=== PATIENT | male | born 1995 | race Two or more races ===

== ENCOUNTER 2024-11-26 16:12 | Inpatient (IN) | payer MEDICARE, MEDICAID ==
[~2024-11-26] VITALS: Ht 167.6 cm; Wt 81.5 kg
[2024-11-26] MEDS: SODIUM CHLORIDE 0.9% 1,000 ML IV ONE (00:30)
--- NOTE | 2024-11-26 16:26 | ED.PDOC ---
GI ASSESSMENT HPI Comments 29 year old male presents to the ED with a chief compliant of abdominal pain onset today (11/26/24) about 45 minutes prior to ED arrival. Per EMS, patient's family left to religious, returned and noticed patient was experiencing several abdominal pain, RLQ. Patient states he had a sandwich and chips for lunch prior to pain. He was given Fentanyl 50 mcg in route to ED by EMS. PMHx cerebral palsy - wheelchair bound. Denies chest pain, nausea, vomiting, diarrhea, constipation, dysuria, hematuria, headache, dizziness, fever, chills. No other symptoms or modifying factors present at this time. Time Seen by MD: 16:20 Reviewed Notes: Medications, Allergies Allergies: Coded Allergies: NO KNOWN ALLERGIES (Unverified , 11/26/24) Information Source: Patient, Emergency Med Personnel Mode of Arrival: EMS Timing: Minutes Duration: Since onset Prehospital treatment: Pain Meds (Fentanyl 50 mcg ) Quality: Sharp Vomitus: None Severity: Moderate Recent: None Recent Hx of: None Pain Location: RLQ Associated sign and symptoms: Abdominal Pain Past Medical History Past Medical History (Other): cerebral palsy Surgical History: Denies all surgeries Family History Family History: Reviewed,noncontributory to illness, No family hx of Cancer, No family hx of DM, No family hx of Heart estevan, No family hx of HTN, No family hx ofKidney estevan, No family hx of Liver estevan, No family hx of Lung estevan, No family hx of Stroke Social History Smoker: Non-Smoker Alcohol: Denies ETOH Use Drugs: Denies Drug Use Lives In: Home Constitutional: denies: chills, diaphoresis, fatigue, fever, malaise, sweats, weakness, others EENTM: denies: blurred vision, double vision, ear bleeding, ear discharge, ear drainage, ear pain, ear ringing, eye pain, eye redness, hearing loss, mouth pain, mouth swelling, nasal discharge, nose bleeding, nose congestion, nose pain, photophobia, tearing, throat pain, throat swelling, voice changes, others Respiratory: denies: cough, hemoptysis, orthopnea, SOB at rest, shortness of breath, SOB with excertion, stridor, wheezing, others Cardiovascular: denies: chest pain, dizzy spells, diaphoresis, Dyspnea on exertion, edema, irregular heart beat, left arm pain, lightheadedness, palpitations, PND, syncope, others Gastrointestinal: reports: abdominal pain (RLQ); denies: abdomen distended, blood streaked bowels, constipated, diarrhea, dysphagia, difficulty swallowing, hematemesis, melena, nausea, poor appetite, poor fluid intake, rectal bleeding, rectal pain, vomiting, others Genitourinary: denies: burning, dysuria, flank pain, frequency, hematuria, incontinence, penile discharge, penile sore, pain, testicle pain, testicle swelling, urgency, others Neurological: denies: dizziness, fainting, headache, left sided numbness, left sided weakness, numbness, paresthesia, pre-existing deficit, right sided numbness, right sided weakness, seizure, speech problems, tingling, tremors, weakness, others Musculoskeletal: denies: back pain, gout, joint pain, joint swelling, muscle pain, muscle stiffness, neck pain, others Integumetry: denies: bruises, change in color, change in hair/nails, dryness, laceration, lesions, lumps, rash, wounds, others Allergic/Immunocompromised: denies: Difficulty Healing, Frequent Infections, Hives, Itching, others Hematologic/Lymphatic: denies: anemia, blood clots, easy bleeding, easy bruising, swollen glands, others Endocrine: denies: excessive hunger, excessive sweating, excessive thirst, excessive urination, flushing, intolerance to cold, intolerance to heat, unexplained weight gain, unexplained weight loss, others Psychiatric: denies: anxiety, bipolar disorder, depression, hopeless, panic disorder, schizophrenia, sleepless, suicidal, others All Other Systems: Reviewed and Negative Physical Exam General Appearance: Normal HEENT: Normal ENT Inspection, Pharynx Normal, TMs Normal Neck: Full Range of Motion, Non-Tender, Normal, Normal Inspection Respiratory: Chest Non-Tender, Lungs Clear, No Accessory Muscle Use, No Respir atory Distress, Normal Breath Sounds Cardiovascular: No Edema, No JVD, No Murmur, No Gallop, Normal Peripheral Pulses, Regular Rate/Rhythm Breast Exam: Deferred Gastrointestinal: No Organomegaly, Normal Bowel Sounds, RLQ (tenderness), Tenderness (RLQ) Genitalia: Deferred Pelvic: Deferred Rectal: Deferred Extremities: No calf tenderness, Normal capillary refill, Normal inspection, Normal range of motion, Non-tender, No pedal edema Musculoskeletal : Apperance: Normal Neurologic: Alert, Normal Affect, Normal Mood Cerebellar Function: Normal Reflexes: Normal Skin: Dry, Normal Color, Warm Lymphatic: No Adenopathy Was a procedure done? Was a procedure done?: No GI differential Dx Differential Diagnosis: Constipation, Diverticular disease, Esophagitis, Gastritis/PUD, Gastroenteritis X-Ray, Labs, Meds, VS Vital Signs Date Time Temp Pulse Resp B/P (MAP) Pulse Ox O2 Delivery O2 Flow Rate FiO2 11/26/24 16:25 98.3 123 24 121/96 (104) 96 98.3 Lab Test 11/26/24 16:45 Range/Units White Blood Count 24.1 H 4.4-10.8 10^3/uL Red Blood Count 5.21 4.5-5.90 10^6/uL Hemoglobin 15.6 13.5-17.5 g/dL Hematocrit 46.7 41.0-53.0 % Mean Corpuscular Volume 89.7 80.0-100.0 fL Mean Corpuscular Hemoglobin 30.0 28.0-32.0 pg Mean Corpuscular Hemoglobin Concent 33.5 32.0-36.0 g/dL Red Cell Distribution Width 13.2 11.8-14.3 % Platelet Count 433 140-450 10^3/uL Mean Platelet Volume 7.9 6.9-10.8 fL Neutrophils (%) (Auto) 82.0 H 37.0-80.0 % Lymphocytes (%) (Auto) 10.4 10.0-50.0 % Monocytes (%) (Auto) 5.5 0.0-12.0 % Eosinophils (%) (Auto) 1.9 0.0-7.0 % Basophils (%) (Auto) 0.2 0.0-2.0 % Neutrophils # (Auto) 19.8 H 1.6-8.6 10 ^3/uL Lymphocytes # (Auto) 2.5 0.4-5.4 10 ^3/uL Monocytes # (Auto) 1.3 0-1.3 10 ^3/uL Eosinophils # (Auto) 0.4 0-0.8 10 ^3/uL Basophils # (Auto) 0.1 0-0.2 10 ^3/uL Nucleated Red Blood Cells 0.1 % Sodium Level 143 136-145 mmol/L Potassium Level 3.0 L 3.5-5.1 mmol/L Chloride Level 113 H 98-107 mmol/L Carbon Dioxide Level 19 L 20-31 mmol/L Anion Gap 11 5-15 Blood Urea Nitrogen Pending Creatinine Pending Glomerular Filtration Rate Calc Pending BUN/Creatinine Ratio Pending Serum Glucose Pending Calcium Level Pending Lipase Pending Time of 1ST Reevaluation: 16:50 Reevaluation 1ST: Unchanged Patient Education/Counseling: Diagnosis, Treatment, Prognosis Family Education/Counseling: No Family Present SEPSIS Sepsis Screen Physician Orders Ct Ab Pel With Iv Con Only (11/26/24 16:23) Basic Metabolic Panel (11/26/24 16:23) Urinalysis (11/26/24 16:23) Lipase (11/26/24 16:23) Vital Signs Date Time Temp Pulse Resp B/P (MAP) Pulse Ox O2 Delivery O2 Flow Rate FiO2 11/26/24 16:25 98.3 123 24 121/96 (104) 96 98.3 Laboratory Tests Test 11/26/24 16:45 White Blood Count 24.1 10^3/uL (4.4-10.8) H Critical Care Note Critical Care Time?: No Stability Stability form required: No I personally scribed for IVETTE ZUÑIGA MD ([email or web address]) on 11/26/24 at 16:26. Electronically submitted by Gail Rivera ([email or web address]). I personally scribed for IVETTE ZUÑIGA MD ([email or web address]) on 11/26/24 at 17:33. Electronically submitted by Gail Rivera [email or web address]). IVETTE ZUÑIGA MD Nov 26, 2024 16:26
[2024-11-26 17:06] LABS: Hematocrit 46.7 % (41.0-53.0); Hemoglobin 15.6 g/dL (13.5-17.5); Mean Corpuscular Hemoglobin 30.0 pg (28.0-32.0); Mean Corpuscular Volume 89.7 fL (80.0-100.0); Nucleated Red Blood Cells % 0.1 %
[2024-11-26 17:15] LABS: Anion Gap 11 (5-15); Sodium 143 mmol/L (136-145)
[2024-11-26 17:16] LABS: Carbon Dioxide 19 mmol/L (20-31); Chloride 113 mmol/L (98-107); Potassium 3.0 mmol/L (3.5-5.1)
[2024-11-26 17:21] LABS: BUN/Creatinine Ratio 13.1 (10.0-20.0); Lipase 27 U/L (12-53)
--- NOTE | 2024-11-26 17:35 | ED.PDOC ---
GI ASSESSMENT HPI Comments 29 year old male presents to the ED with a chief compliant of abdominal pain onset today (11/26/24) about 45 minutes prior to ED arrival. Per EMS, patient's family left to anabaptism, returned and noticed patient was experiencing several abdominal pain, RLQ. Patient states he had a sandwich and chips for lunch prior to pain. He was given Fentanyl 50 mcg in route to ED by EMS. PMHx cerebral palsy - wheelchair bound. Denies chest pain, nausea, vomiting, diarrhea, constipation, dysuria, hematuria, headache, dizziness, fever, chills. No other symptoms or modifying factors present at this time. Chief Complaint: Abdominal Pain Time Seen by MD: 16:20 Reviewed Notes: Nurses Notes, Medications, Allergies Allergies: Coded Allergies: NO KNOWN ALLERGIES (Unverified , 11/26/24) Information Source: Patient, Emergency Med Personnel Mode of Arrival: EMS Timing: Minutes Duration: Since onset Prehospital treatment: Pain Meds (50 mcg Fentanyl) Quality: Sharp Vomitus: None Severity: Moderate Recent: None Recent Hx of: None Pain Location: RLQ Modifying Factors: Nothing Associated sign and symptoms: Abdominal Pain Past Medical History Past Medical History (Other): cerebral palsy Surgical History: Denies all surgeries Family History Family History: Reviewed,noncontributory to illness, No family hx of Cancer, No family hx of DM, No family hx of Heart estevan, No family hx of HTN, No family hx ofKidney estevan, No family hx of Liver estevan, No family hx of Lung estevan, No family hx of Stroke Social History Smoker: Non-Smoker Alcohol: Denies ETOH Use Drugs: Denies Drug Use Lives In: Home Constitutional: denies: chills, diaphoresis, fatigue, fever, malaise, sweats, weakness, others EENTM: denies: blurred vision, double vision, ear bleeding, ear discharge, ear drainage, ear pain, ear ringing, eye pain, eye redness, hearing loss, mouth pain, mouth swelling, nasal discharge, nose bleeding, nose congestion, nose pain, photophobia, tearing, throat pain, throat swelling, voice changes, others Respiratory: denies: cough, hemoptysis, orthopnea, SOB at rest, shortness of breath, SOB with excertion, stridor, wheezing, others Cardiovascular: denies: chest pain, dizzy spells, diaphoresis, Dyspnea on exertion, edema, irregular heart beat, left arm pain, lightheadedness, palpitations, PND, syncope, others Gastrointestinal: reports: abdominal pain (RLQ); denies: abdomen distended, blood streaked bowels, constipated, diarrhea, dysphagia, difficulty swallowing, hematemesis, melena, nausea, poor appetite, poor fluid intake, rectal bleeding, rectal pain, vomiting, others Genitourinary: denies: burning, dysuria, flank pain, frequency, hematuria, incontinence, penile discharge, penile sore, pain, testicle pain, testicle swelling, urgency, others Neurological: denies: dizziness, fainting, headache, left sided numbness, left sided weakness, numbness, paresthesia, pre-existing deficit, right sided numbness, right sided weakness, seizure, speech problems, tingling, tremors, weakness, others Musculoskeletal: denies: back pain, gout, joint pain, joint swelling, muscle pain, muscle stiffness, neck pain, others Integumetry: denies: bruises, change in color, change in hair/nails, dryness, laceration, lesions, lumps, rash, wounds, others Allergic/Immunocompromised: denies: Difficulty Healing, Frequent Infections, Hives, Itching, others Hematologic/Lymphatic: denies: anemia, blood clots, easy bleeding, easy bruising, swollen glands, others Endocrine: denies: excessive hunger, excessive sweating, excessive thirst, excessive urination, flushing, intolerance to cold, intolerance to heat, unexpl ained weight gain, unexplained weight loss, others Psychiatric: denies: anxiety, bipolar disorder, depression, hopeless, panic disorder, schizophrenia, sleepless, suicidal, others All Other Systems: Reviewed and Negative Physical Exam General Appearance: Normal HEENT: Normal ENT Inspection, Pharynx Normal, TMs Normal Neck: Full Range of Motion, Non-Tender, Normal, Normal Inspection Respiratory: Chest Non-Tender, Lungs Clear, No Accessory Muscle Use, No Respiratory Distress, Normal Breath Sounds Cardiovascular: No Edema, No JVD, No Murmur, No Gallop, Normal Peripheral Pulses, Regular Rate/Rhythm Breast Exam: Deferred Gastrointestinal: No Organomegaly, RLQ (tenderness), Tenderness (RLQ) Genitalia: Deferred Pelvic: Deferred Rectal: Deferred Extremities: No calf tenderness, Normal capillary refill, Normal inspection, Normal range of motion, Non-tender, No pedal edema Musculoskeletal : Apperance: Normal Neurologic: Alert, Normal Affect Cerebellar Function: Normal Reflexes: Normal Skin: Dry, Normal Color, Warm Lymphatic: No Adenopathy Was a procedure done? Was a procedure done?: No GI differential Dx Differential Diagnosis: Appendicitis, Bowel Obstruction, Cholangitis, Cholecystitis, Gastritis/PUD, Gastroenteritis X-Ray, Labs, Meds, VS Vital Signs Date Time Temp Pulse Resp B/P (MAP) Pulse Ox O2 Delivery O2 Flow Rate FiO2 11/26/24 21:43 97.6 113 16 113/69 (84) 96 97.6 11/26/24 16:25 98.3 123 24 121/96 (104) 96 98.3 Lab Test 11/26/24 20:50 11/26/24 16:45 Range/Units Sodium Level 138 # 143 136-145 mmol/L Potassium Level 4.7 3.0 L 3.5-5.1 mmol/L Chloride Level 104 113 H 98-107 mmol/L Carbon Dioxide Level 24 19 L 20-31 mmol/L Anion Gap 10 11 5-15 Blood Urea Nitrogen 9 8 L 9-23 mg/dL Creatinine 0.82 0.61 L 0.700-1.30 mg/dL Glomerular Filtration Rate Calc 120 132 >90 mL/min BUN/Creatinine Ratio 11.0 13.1 10.0-20.0 Serum Glucose 130 H 123 H 74-106 mg/dL Calcium Level 9.7 6.8 L 8.7-10.4 mg/dL Total Bilirubin 0.6 0.2-1.0 mg/dL Aspartate Amino Transferase (AST) 203 H 13-40 U/L Alanine Aminotransferase (ALT) 198 H 7-40 U/L Alkaline Phosphatase 121 H 46-116 U/L Total Protein 7.6 5.7-8.2 g/dL Albumin 4.6 3.2-4.8 g/dL White Blood Count 24.1 H 4.4-10.8 10^3/uL Red Blood Count 5.21 4.5-5.90 10^6/uL Hemoglobin 15.6 13.5-17.5 g/dL Hematocrit 46.7 41.0-53.0 % Mean Corpuscular Volume 89.7 80.0-100.0 fL Mean Corpuscular Hemoglobin 30.0 28.0-32.0 pg Mean Corpuscular Hemoglobin Concent 33.5 32.0-36.0 g/dL Red Cell Distribution Width 13.2 11.8-14.3 % Platelet Count 433 140-450 10^3/uL Mean Platelet Volume 7.9 6.9-10.8 fL Neutrophils (%) (Auto) 82.0 H 37.0-80.0 % Lymphocytes (%) (Auto) 10.4 10.0-50.0 % Monocytes (%) (Auto) 5.5 0.0-12.0 % Eosinophils (%) (Auto) 1.9 0.0-7.0 % Basophils (%) (Auto) 0.2 0.0-2.0 % Neutrophils # (Auto) 19.8 H 1.6-8.6 10 ^3/uL Lymphocytes # (Auto) 2.5 0.4-5.4 10 ^3/uL Monocytes # (Auto) 1.3 0-1.3 10 ^3/uL Eosinophils # (Auto) 0.4 0-0.8 10 ^3/uL Basophils # (Auto) 0.1 0-0.2 10 ^3/uL Nucleated Red Blood Cells 0.1 % Lipase 27 12-53 U/L X-Ray, Labs, Meds, VS Comment Gallbladder ultrasound: IMPRESSION: 1. Cholelithiasis and sludge with gallbladder wall thickening. These findings may be consistent with acute cholecystitis in the appropriate clinical setting. 2. Diffusely coarsened heterogeneous hepatic parenchymal echotexture. Patient will be admitted for cholecystitis Patient is started on ceftriaxone and Flagyl Vital signs monitored clinically stable Time of 1ST Reevaluation: 16:50 Reevaluation 1ST: Unchanged Patient Education/Counseling: Diagnosis, Treatment, Prognosis Family Education/Counseling: Diagnosis, Treatment, Prognosis SEPSIS Sepsis Screen Date sepsis recognized/suspect: Nov 26, 2024 Time Sepsis recognized/suspect: 1624 Recent Procedure: No On Antibiotic Therapy: No Respiratory Rate >20: Yes Heart Rate >90: Yes Temp<36 C (96.8 F) or >38.3 C: No SBP <90 or MAP <65 mmHG: No New Acute Mental Status Change: No Is the patient on CPAP, BIPAP,: No Physician Orders Ct Ab Pel With Iv Con Only (11/26/24 16:23) Urinalysis (11/26/24 16:23) Blood Culture (11/26/24 20:41) Gallbladder (11/26/24 20:41) Ceftriaxone 1gm/50ml D5w (Rocephin) (11/26/24 23:00) Metronidazole 500mg/100ml (Flagyl 500mg/ (11/26/24 23:00) Vital Signs Date Time Temp Pulse Resp B/P (MAP) Pulse Ox O2 Delivery O2 Flow Rate FiO2 11/26/24 21:43 97.6 113 16 113/69 (84) 96 97.6 11/26/24 16:25 98.3 123 24 121/96 (104) 96 98.3 Laboratory Tests Test 11/26/24 16:45 White Blood Count 24.1 10^3/uL (4.4-10.8) H Departure 1 Departure Time of Disposition: 16:50 Impression: Primary Impression: Cholecystitis Disposition: ADMITTED INPATIENT Condition: Stable Critical Care Note Critical Care Time?: No Stability Stability form required: No I personally scribed for AMINA CATES ([email or web address]) on 11/26/24 at 17:35. Electronically submitted by Gail Rivera [email or web address]). AMINA CATES Nov 26, 2024 17:35
[2024-11-26 18:23] LABS: Blood Urea Nitrogen 8 mg/dL (9-23); Calcium 6.8 mg/dL (8.7-10.4); Glucose 123 mg/dL (74-106)
--- NOTE | 2024-11-26 20:24 | DVH ---
Exam: CT CT AB PEL WITH IV CON ONLY History: rlq pain COMPARISON: None Technique: Multidetector spiral CT of the abdomen and pelvis was performed from lung bases to pubic s ymphysis. Intravenous contrast was administered during this examination. Portal venous imaging was obtained. Axial, coronal and sagittal multiplanar reformats were performed by the technologist on a separate workstation. Radiation Dose : 1. Abdomen/Pelvis: CTDIvol 70.8 mGy, DLP 1026 mGy*cm. Findings: Lung Bases: Mild bibasilar dependent atelectasis. Heart is normal in size. No pericardial effusion. Liver: The liver is normal in size. No focal lesions. Normal hepatic vascular enhancement. Gallbladder and Biliary Tree: There is pericholecystic fluid versus mild gallbladder wall thickening along the posterior gallbladder wall. There is focal fat stranding along the inferior margin of the g allbladder. No biliary ductal dilatation. Spleen: Unremarkable Pancreas: The pancreas is normal in appearance without focal lesions or abnormal enhancement. Adrenal Glands: Unremarkable Kidneys: No hydronephrosis. Bladder: Unremarkable Bowel: The stomach is grossly normal in appearance. No evidence of small or large bowel dilation. Mil d wall thickening in the sigmoid colon is likely due to poor distention. The appendix measures up to 6 mm in diameter with and may have mild wall thickening which may be reactive. There is a small amou nt of fluid in the right lower quadrant but no significant periappendiceal fat stranding. Ascites: Small amount of fluid in the right lower quadrant and pelvis. Lymphadenopathy: No mesenteric, retroperitoneal or periportal lymphadenopathy. Abdominal Wall and Mesentery: Unremarkable. Vasculature: The visualized abdominal aorta is normal in size and caliber. Abdominal and pelvic vess els demonstrate normal enhancement. Pelvic Organs: Unremarkable Musculoskeletal: No acute osseous abnormalities. Prior L4-L5 laminectomies. IMPRESSION: Mild fat stranding and fluid in the right abdomen. The most focal area of inflammation is between th e gallbladder and hepatic flexure of the colon. Findings may be secondary to cholecystitis. Colitis i s considered less likely due to a relative lack of colon wall thickening. There is minimal prominence of the appendix (6 mm) although appendicitis is considered less likely given the more focal inflamma tion in the right upper quadrant. Consider right upper quadrant ultrasound. Radiation optimization: All CT scans at this facility use at least one of these dose optimization lila hniques: automated exposure control mA and/or kV adjustment per patient size (includes targeted exam s where dose is matched to clinical indication) or iterative reconstruction.
[2024-11-26 21:20] LABS: Albumin 4.6 g/dL (3.2-4.8); Anion Gap 10 (5-15); BUN/Creatinine Ratio 11.0 (10.0-20.0); Calcium 9.7 mg/dL (8.7-10.4); Carbon Dioxide 24 mmol/L (20-31); Chloride 104 mmol/L (98-107); Potassium 4.7 mmol/L (3.5-5.1); Sodium 138 mmol/L (136-145); Total Protein 7.6 g/dL (5.7-8.2)
[2024-11-26 21:21] LABS: Bilirubin, Total 0.6 mg/dL (0.2-1.0)
[2024-11-26 21:49] LABS: Alanine Aminotransferase 198 U/L (7-40); Alkaline Phosphatase 121 U/L (46-116); Blood Urea Nitrogen 9 mg/dL (9-23); Glucose 130 mg/dL (74-106)
[2024-11-26] MEDS: IOHEXOL 300 MG/ML 100ML BOTTLE IJ ONE (22:12)
--- NOTE | 2024-11-26 22:38 | DVH ---
INDICATION: RUQ pain TECHNIQUE: Multiple real-time sonographic images were obtained of the right upper quadrant. COMPARISON: None FINDINGS: The liver demonstrates diffusely coarsened heterogeneous echotexture without focal mass les ions. The liver measures 13.6 cm. Normal hepatopetal portal flow identified. No evidence of pleural effusion or abdominal ascites. There is no intrahepatic or extrahepatic ductal dilatation. The common duct measures 0.5 cm. Stones and sludge within the gallbladder. The gallbladder wall is thickened, measuring 0.5 cm. Negati ve sonographic Sawyer's sign. The right kidney measures 9.1 cm. The right kidney is normal in contour, size, and shape. The echogen icity is normal. There is no hydronephrosis. The pancreas is not well visualized due to overlying bowel gas. IMPRESSION: 1. Cholelithiasis and sludge with gallbladder wall thickening. These findings may be consistent with acute cholecystitis in the appropriate clinical setting. 2. Diffusely coarsened heterogeneous hepatic parenchymal echotexture.
[2024-11-26] MEDS ORDERED: ONDANSETRON HCL 4 MG/2 ML VIAL IV PRN (23:45)
[2024-11-26] MEDS ORDERED: MORPHINE SULFATE INJ 2 MG/ml SYRG IV PRN (23:45)
[2024-11-27] VITALS (14 sets, daily range): BP systolic 117–142; BP diastolic 67–85; PULSE 77–119; RESP 13–24; TEMP 96.9–98.2; O2SAT 91–96
[2024-11-27] MEDS: cefTRIAXone 1GM/50ML D5W 50 ML IV ONE (00:30)
[2024-11-27 00:39] LABS: INR 1.04 (0.9-1.15); Partial Thromboplastin Time 29.9 SEC (24.5-34.5); Prothrombin Time 11.0 sec (9.3-11.8)
[2024-11-27 02:54] LABS: Urine Protein, UAD TRACE (Negative)
--- NOTE | 2024-11-27 04:00 | DVHHP2 ---
History of Present Illness Reason for Visit: Abdominal pain History of Present Illness 29-year-old male presents for evaluation of abdominal pain. Patient presents with a one day history of right lower quadrant sharp abdominal pain that started after he finished eating a sandwich with chips. No nausea or vomiting. No fever or chills. Past Medical History Cerebral palsy Past Surgical History None Family History Noncontributory Smoke: No ALCOHOL: none Drugs: None Lives: with Family Review of Systems Review of Systems Review of systems are currently negative otherwise addressed in HPI. Allergies: Coded Allergies: NO KNOWN ALLERGIES (Unverified , 11/26/24) Medications Current Medications Medications Dose Ordered Sig/Sebastian Route Start Time Stop Time Status Last Admin Dose Admin Ceftriaxone Sodium 50 ml @ 100 mls/hr DAILY@2100 IV 11/27/24 21:00 Metronidazole 100 ml @ 100 mls/hr Q8HR IV 11/27/24 06:00 Pantoprazole Sodium 40 mg DAILY IV 11/27/24 10:00 Ondansetron HCl 4 mg Q4HP PRN IV 11/26/24 23:45 Morphine Sulfate 2 mg Q4HPRN PRN IV 11/26/24 23:45 Exam Vital Signs Vital Signs Date Time Temp Pulse Resp B/P (MAP) Pulse Ox O2 Delivery O2 Flow Rate FiO2 11/27/24 02:18 97.7 77 19 142/85 (104) 94 97.7 11/27/24 02:11 Room Air* 0 21 Exam Gen: 29-year-old male in mild distress Skin: Warm, dry, normal color and texture, no rash. HEENT: Normocephalic atraumatic, mucous membranes moist and pink. Neck: Cervical and supraclavicular nodes normal without enlargement, trachea is midline, thyroid gland is normal without masses. Pulmonary: Clear to auscultation and percussion bilaterally. Cardiac: Regular rate and rhythm. No murmur Abdomen: Soft, right-sided tenderness nondistended, bowel sounds present all 4 quadrants, no guarding, no rigidity, no organomegaly. Extremities: No cyanosis, clubbing, no edema Neuro: Cranial nerves II through XII grossly intact, normal affect and speech, no focal motor deficits. Labs/Xrays ORDERING PHYSICIAN: AMINA CATES PROCEDURE(s): ABPLIV - CT AB PEL WITH IV CON ONLY REASON: rlq pain ORDER NUMBER(s): [id number], ACCESSION NUMBER(s): [id number] Exam: CT CT AB PEL WITH IV CON ONLY History: rlq pain COMPARISON: None Technique: Multidetector spiral CT of the abdomen and pelvis was performed from lung bases to pubic symphysis. Intravenous contrast was administered during this examination. Portal venous imaging was obtained. Axial, coronal and sagittal multiplanar reformats were performed by the technologist on a separate workstation. Radiation Dose : 1. Abdomen/Pelvis: CTDIvol 70.8 mGy, DLP 1026 mGy*cm. Findings: Lung Bases: Mild bibasilar dependent atelectasis. Heart is normal in size. No pericardial effusion. Liver: The liver is normal in size. No focal lesions. Normal hepatic vascular enhancement. Gallbladder and Biliary Tree: There is pericholecystic fluid versus mild gallbladder wall thickening along the posterior gallbladder wall. There is focal fat stranding along the inferior margin of the gallbladder. No biliary ductal dilatation. Spleen: Unremarkable Pancreas: The pancreas is normal in appearance without focal lesions or abnormal enhancement. Adrenal Glands: Unremarkable Kidneys: No hydronephrosis. Bladder: Unremarkable Bowel: The stomach is grossly normal in appearance. No evidence of small or large bowel dilation. Mild wall thickening in the sigmoid colon is likely due to poor distention. The appendix measures up to 6 mm in diameter with and may have mild wall thickening which may be reactive. There is a small amount of fluid in the right lower quadrant but no significant periappendiceal fat stranding. Ascites: Small amount of fluid in the right lower quadrant and pelvis. Lymphadenopathy: No mesenteric, retroperitoneal or periportal lymphadenopathy. Abdominal Wall and Mesentery: Unremarkable. Vasculature: The visualized abdominal aorta is normal in size and caliber. Abdominal and pelvic vessels demonstrate normal enhancement. Pelvic Organs: Unremarkable Musculoskeletal: No acute osseous abnormalities. Prior L4-L5 laminectomies. IMPRESSION: Mild fat stranding and fluid in the right abdomen. The most focal area of inflammation is between the gallbladder and hepatic flexure of the colon. Findings may be secondary to cholecystitis. Colitis is considered less likely due to a relative lack of colon wall thickening. There is minimal prominence of the appendix (6 mm) although appendicitis is considered less likely given the more focal inflammation in the right upper quadrant. Consider right upper quadrant ultrasound. Radiation optimization: All CT scans at this facility use at least one of these dose optimization techniques: automated exposure control mA and/or kV adjustment per patient size (includes targeted exams where dose is matched to clinical indication) or iterative reconstruction. ATED BY: PETER GERMAN DO ORDERING PHYSICIAN: AMINA CATES PROCEDURE(s): GBUS - GALLBLADDER REASON: RUQ pain ORDER NUMBER(s): [id number], ACCESSION NUMBER(s): [id number] INDICATION: RUQ pain TECHNIQUE: Multiple real-time sonographic images were obtained of the right upper quadrant. COMPARISON: None FINDINGS: The liver demonstrates diffusely coarsened heterogeneous echotexture without focal mass lesions. The liver measures 13.6 cm. Normal hepatopetal portal flow identified. No evidence of pleural effusion or abdominal ascites. There is no intrahepatic or extrahepatic ductal dilatation. The common duct measures 0.5 cm. Stones and sludge within the gallbladder. The gallbladder wall is thickened, measuring 0.5 cm. Negative sonographic Sawyer's sign. The right kidney measures 9.1 cm. The right kidney is normal in contour, size, and shape. The echogenicity is normal. There is no hydronephrosis. The pancreas is not well visualized due to overlying bowel gas. IMPRESSION: 1. Cholelithiasis and sludge with gallbladder wall thickening. These findings may be consistent with acute cholecystitis in the appropriate clinical setting. 2. Diffusely coarsened heterogeneous hepatic parenchymal echotexture. Labs Test 11/27/24 00:16 11/26/24 23:59 11/26/24 20:50 11/26/24 16:45 Range/Units Urine Color Yellow Yellow Urine Clarity Clear Clear Urine pH 5.5 5.0-9.0 Urine Specific [place] > 1.050 H 1.001-1.035 Urine Protein Trace H Negative Urine Ketones 3+ H Negative Urine Blood Negative Negative /uL Urine Nitrite Negative Negative Urine Bilirubin Negative Negative Urine Urobilinogen Normal Negative mg/dL Urine Leukocyte Esterase Negative Negative /uL Urine RBC None seen 0 - 3 /hpf Urine Microscopic WBC 1 0-3 /HPF Urine Squamous Epithelial Cells None seen <5 /hpf Urine Bacteria None seen None Seen /hpf Urine Glucose Normal Normal mg/dL Prothrombin Time 11.0 9.3-11.8 sec Prothrombin Time INR 1.04 0.9-1.15 Activated Partial Thromboplast Time 29.9 24.5-34.5 SEC Sodium Level 138 # 136-145 mmol/L Potassium Level 4.7 3.5-5.1 mmol/L Chloride Level 104 98-107 mmol/L Carbon Dioxide Level 24 20-31 mmol/L Anion Gap 10 5-15 Blood Urea Nitrogen 9 9-23 mg/dL Creatinine 0.82 0.700-1.30 mg/dL Glomerular Filtration Rate Calc 120 >90 mL/min BUN/Creatinine Ratio 11.0 10.0-20.0 Serum Glucose 130 H 74-106 mg/dL Calcium Level 9.7 8.7-10.4 mg/dL Total Bilirubin 0.6 0.2-1.0 mg/dL Aspartate Amino Transferase (AST) 203 H 13-40 U/L Alanine Aminotransferase (ALT) 198 H 7-40 U/L Alkaline Phosphatase 121 H 46-116 U/L Total Protein 7.6 5.7-8.2 g/dL Albumin 4.6 3.2-4.8 g/dL White Blood Count 24.1 H 4.4-10.8 10^3/uL Red Blood Count 5.21 4.5-5.90 10^6/uL Hemoglobin 15.6 13.5-17.5 g/dL Hematocrit 46.7 41.0-53.0 % Mean Corpuscular Volume 89.7 80.0-100.0 fL Mean Corpuscular Hemoglobin 30.0 28.0-32.0 pg Mean Corpuscular Hemoglobin Concent 33.5 32.0-36.0 g/dL Red Cell Distribution Width 13.2 11.8-14.3 % Platelet Count 433 140-450 10^3/uL Mean Platelet Volume 7.9 6.9-10.8 fL Neutrophils (%) (Auto) 82.0 H 37.0-80.0 % Lymphocytes (%) (Auto) 10.4 10.0-50.0 % Monocytes (%) (Auto) 5.5 0.0-12.0 % Eosinophils (%) (Auto) 1.9 0.0-7.0 % Basophils (%) (Auto) 0.2 0.0-2.0 % Neutrophils # (Auto) 19.8 H 1.6-8.6 10 ^3/uL Lymphocytes # (Auto) 2.5 0.4-5.4 10 ^3/uL Monocytes # (Auto) 1.3 0-1.3 10 ^3/uL Eosinophils # (Auto) 0.4 0-0.8 10 ^3/uL Basophils # (Auto) 0.1 0-0.2 10 ^3/uL Nucleated Red Blood Cells 0.1 % Lipase 27 12-53 U/L SEPSIS Sepsis Screen Date sepsis recognized/suspect: Nov 26, 2024 Time Sepsis recognized/suspect: 1624 Recent Procedure: No On Antibiotic Therapy: No Respiratory Rate >20: Yes Heart Rate >90: Yes Temp<36 C (96.8 F) or >38.3 C: No SBP <90 or MAP <65 mmHG: No New Acute Mental Status Change: No Is the patient on CPAP, BIPAP,: No Physician Orders Blood Culture (11/26/24 20:41) Gallbladder (11/26/24 20:41) Ceftriaxone 1gm/50ml D5w (Rocephin) (11/27/24 21:00) Metronidazole 500mg/100ml (Flagyl 500mg/ (11/27/24 06:00) Sodium Chloride 0.9% (11/26/24 23:45) Pantoprazole (Protonix) (11/27/24 10:00) Basic Metabolic Panel (11/27/24 04:00) Admit (11/26/24 23:39) Ondansetron Hcl (Zofran) (11/26/24 23:45) Complete Blood Count (11/27/24 04:00) Npo (Nothing By Mouth) Diet (11/27/24 Breakfast) Condition: Stable (11/26/24 23:39) Bedrest With Bathroom Privileg (11/26/24 23:39) Morphine Sulfate Injection (11/26/24 23:45) * Surgical Consult (11/27/24 03:16) Lactic Acid W/ Reflex Order (11/27/24 03:55) Vital Signs Date Time Temp Pulse Resp B/P (MAP) Pulse Ox O2 Delivery O2 Flow Rate FiO2 11/27/24 02:18 97.7 77 19 142/85 (104) 94 97.7 11/27/24 02:11 96 Room Air* 0 21 11/27/24 02:06 97.7 119 17 142/85 (104) 94 97.7 11/27/24 00:15 98.5 78 17 118/73 (88) 97 98.5 11/26/24 21:43 97.6 113 16 113/69 (84) 96 97.6 Laboratory Tests Test 11/26/24 16:45 White Blood Count 24.1 10^3/uL (4.4-10.8) H Medications Medications Dose Ordered Sig/Sebastian Route Start Time Stop Time Status Last Admin Dose Admin Ceftriaxone Sodium 50 ml @ 100 mls/hr ONCE ONCE IV 11/26/24 23:00 11/26/24 23:29 DC 11/27/24 00:30 100 MLS/HR Sodium Chloride 1,000 ml @ 100 mls/hr Q10H ONCE IV 11/26/24 23:45 11/27/24 09:44 11/26/24 00:30 100 MLS/HR Assessment/Plan Assessment/Plan Assessment Acute abdominal pain Acute cholecystitis Leukocytosis Plan Admit the patient to [facility] to the hospitalist Surgical consultation NPO Rocephin/Flagyl Maintenance IV fluids Pain management Continue treatment per orders. Plan discussed with: Patient My Orders Orders - YOSSI CHAPMAN AGACNP Procedure Category Date Status Time Ceftriaxone 1gm/50ml PHA 11/27/24 In Process D5w (Rocephin) 21:00 Metronidazole PHA 11/27/24 In Process 500mg/100ml (Flagyl 06:00 Sodium Chloride 0.9% PHA 11/26/24 In Process 23:45 Pantoprazole PHA 11/27/24 In Process (Protonix) 10:00 Basic Metabolic Panel LAB 11/27/24 Logged 04:00 Admit ADMIT 11/26/24 Transmitted 23:39 Ondansetron Hcl PHA 11/26/24 In Process (Zofran) 23:45 Complete Blood Count LAB 11/27/24 Logged 04:00 Npo (Nothing By DIET 11/27/24 Transmitted Mouth) Diet Breakfast Condition: Stable ELIZABETH 11/26/24 In Process 23:39 Bedrest With Bathroom ELIZABETH 11/26/24 In Process Privileg 23:39 Morphine Sulfate PHA 11/26/24 In Process Injection 23:45 * Surgical Consult CONS 11/27/24 Transmitted 03:16 Lactic Acid W/ Reflex LAB 11/27/24 Verified Order 03:55 Date of Service: Nov 26, 2024 Billing Provider: YOSSI CHAPMAN Common Visit Codes: [id number] INP/OBS CARE (HIGH) YOSSI CHAPMAN Nov 27, 2024 04:00
[2024-11-27 07:28] LABS: Chloride 106 mmol/L (98-107); Potassium 3.5 mmol/L (3.5-5.1); Sodium 141 mmol/L (136-145)
[2024-11-27 07:29] LABS: Anion Gap 11 (5-15); Calcium 9.5 mg/dL (8.7-10.4); Carbon Dioxide 24 mmol/L (20-31)
[2024-11-27 07:33] LABS: Hematocrit 44.8 % (41.0-53.0); Hemoglobin 15.4 g/dL (13.5-17.5); Mean Corpuscular Hemoglobin 30.8 pg (28.0-32.0); Mean Corpuscular Volume 89.8 fL (80.0-100.0); Nucleated Red Blood Cells % 0.0 %
[2024-11-27 07:34] LABS: BUN/Creatinine Ratio 10.7 (10.0-20.0)
[2024-11-27 07:36] LABS: Blood Urea Nitrogen 8 mg/dL (9-23); Glucose 121 mg/dL (74-106)
--- NOTE | 2024-11-27 08:48 | DVHINCON2 ---
Date of service: Nov 27, 2024 History of Present Illness Year old male with cerebral palsy complaining of one day history of right upper quadrant lower quadrant abdominal pain associated with nausea. Patient reports improvement in his abdominal pain today. Past Medical History Cerebral palsy Past Surgical History Denies any abdominal surgeries Family History: FH: cancer grandfather1 Family History Noncontributory Social History No alcohol, tobacco, IV drug use Allergies: Coded Allergies: NO KNOWN ALLERGIES (Unverified , 11/26/24) Home Meds Unable to Obtain Active Prescriptions or Reported Meds Current Medications Current Medications Medications (Trade) Dose Ordered Sig/Sebastian Route PRN Reason Start Time Stop Time Status Last Admin Ceftriaxone Sodium 50 ml @ 100 mls/hr DAILY@2100 IV 11/27/24 21:00 Metronidazole 100 ml @ 100 mls/hr Q8HR IV 11/27/24 06:00 11/27/24 05:37 Pantoprazole Sodium (Protonix) 40 mg DAILY IV 11/27/24 10:00 Ondansetron HCl (Zofran) 4 mg Q4HP PRN IV NAUSEA / VOMITING 11/26/24 23:45 Morphine Sulfate 2 mg Q4HPRN PRN IV SEVERE PAIN (7-10 PAIN SCALE) 11/26/24 23:45 Vital Signs Vital Signs Date Time Temp Pulse Resp B/P (MAP) Pulse Ox O2 Delivery O2 Flow Rate FiO2 11/27/24 05:00 98.2 111 19 136/80 (98) 92 98.2 11/27/24 02:11 Room Air* 0 21 Physical Exam GEN: Age-appropriate male in no acute distress. Alert. HEENT: Normocephalic atraumatic. Moist mucous membranes. Anicteric sclerae. CV: RRR Respiratory: CTAB ABD: Right upper quadrant and lower quadrant tenderness to palpation without significant guarding or rebound. Abdominal ultrasound: Gallstones with sludge within the gallbladder. Gallbladder wall is thickened measuring 0.5 cm. Common bile duct is 0.[address] of the abdomen and pelvis: Mild fat stranding and fluid in the right abdomen with most focal area of inflammation between the gallbladder and hepatic flexure of the colon. Finding may be secondary to cholecystitis. Colitis is less likely. Appendix is 6 mm. Labs/Diagnostic Data Labs Test 11/27/24 05:53 11/27/24 05:32 11/27/24 00:16 11/26/24 23:59 Range/Units Lactic Acid Level 1.3 0.4-2.0 mmol/L White Blood Count 16.0 #H 4.4-10.8 10^3/uL Red Blood Count 4.98 4.5-5.90 10^6/uL Hemoglobin 15.4 13.5-17.5 g/dL Hematocrit 44.8 41.0-53.0 % Mean Corpuscular Volume 89.8 80.0-100.0 fL Mean Corpuscular Hemoglobin 30.8 28.0-32.0 pg Mean Corpuscular Hemoglobin Concent 34.3 32.0-36.0 g/dL Red Cell Distribution Width 13.1 11.8-14.3 % Platelet Count 316 140-450 10^3/uL Mean Platelet Volume 8.1 6.9-10.8 fL Neutrophils (%) (Auto) 88.6 H 37.0-80.0 % Lymphocytes (%) (Auto) 4.6 L 10.0-50.0 % Monocytes (%) (Auto) 6.5 0.0-12.0 % Eosinophils (%) (Auto) 0.0 0.0-7.0 % Basophils (%) (Auto) 0.3 0.0-2.0 % Neutrophils # (Auto) 14.1 H 1.6-8.6 10 ^3/uL Lymphocytes # (Auto) 0.7 0.4-5.4 10 ^3/uL Monocytes # (Auto) 1.0 0-1.3 10 ^3/uL Eosinophils # (Auto) 0 0-0.8 10 ^3/uL Basophils # (Auto) 0 0-0.2 10 ^3/uL Nucleated Red Blood Cells 0.0 % Sodium Level 141 136-145 mmol/L Potassium Level 3.5 3.5-5.1 mmol/L Chloride Level 106 98-107 mmol/L Carbon Dioxide Level 24 20-31 mmol/L Anion Gap 11 5-15 Blood Urea Nitrogen 8 L 9-23 mg/dL Creatinine 0.75 0.700-1.30 mg/dL Glomerular Filtration Rate Calc 124 >90 mL/min BUN/Creatinine Ratio 10.7 10.0-20.0 Serum Glucose 121 H 74-106 mg/dL Calcium Level 9.5 8.7-10.4 mg/dL Urine Color Yellow Yellow Urine Clarity Clear Clear Urine pH 5.5 5.0-9.0 Urine Specific [place] > 1.050 H 1.001-1.035 Urine Protein Trace H Negative Urine Ketones 3+ H Negative Urine Blood Negative Negative /uL Urine Nitrite Negative Negative Urine Bilirubin Negative Negative Urine Urobilinogen Normal Negative mg/dL Urine Leukocyte Esterase Negative Negative /uL Urine RBC None seen 0 - 3 /hpf Urine Microscopic WBC 1 0-3 /HPF Urine Squamous Epithelial Cells None seen <5 /hpf Urine Bacteria None seen None Seen /hpf Urine Glucose Normal Normal mg/dL Prothrombin Time 11.0 9.3-11.8 sec Prothrombin Time INR 1.04 0.9-1.15 Activated Partial Thromboplast Time 29.9 24.5-34.5 SEC Test 11/26/24 20:50 11/26/24 16:45 Range/Units Total Bilirubin 0.6 0.2-1.0 mg/dL Aspartate Amino Transferase (AST) 203 H 13-40 U/L Alanine Aminotransferase (ALT) 198 H 7-40 U/L Alkaline Phosphatase 121 H 46-116 U/L Total Protein 7.6 5.7-8.2 g/dL Albumin 4.6 3.2-4.8 g/dL Lipase 27 12-53 U/L Assessment 1. Acute cholecystitis Plan/Recommendation 1. Laparoscopic cholecystectomy possible open surgery. Informed consent: The surgery and its risks including but not limited to infection, bleeding requiring possible blood transfusion with the risk of hepatitis or HIV infection, possible open surgery, possible cystic duct leak or retained common bile duct stone requiring further intervention such as an ERCP, possible perioperative IA or stroke were explained to the patient and his father. All questions were answered to their satisfaction. The patient expressed verbal understanding and wished to proceed with the surgery. Plan discussed with: Patient, Other (father) ANNETTE EVANS MD Nov 27, 2024 08:48
[2024-11-27 09:12] LABS: Albumin 4.0 g/dL (3.2-4.8); Alkaline Phosphatase 103.0 U/L (46-116); Bilirubin, Direct 0.1 mg/dL (<0.3); Bilirubin, Total 0.4 mg/dL (0.2-1.0); Total Protein 6.7 g/dL (5.7-8.2)
[2024-11-27 09:35] LABS: Alanine Aminotransferase 161.0 U/L (7-40)
[2024-11-27] MEDS: PANTOPRAZOLE 40 MG/10 ML VIAL INJ IV SCH (09:59)
[2024-11-27] MEDS ORDERED: KETAMINE 50mg/ML 1ml syringe ONE (11:56)
[2024-11-27] MEDS ORDERED: SODIUM CHLORIDE LOCK 0 ML ONE (11:57)
[2024-11-27] MEDS ORDERED: ONDANSETRON HCL 4 MG/2 ML VIAL ONE ×2 (11:57→12:36)
[2024-11-27] MEDS ORDERED: ROCURONIUM 10MG/ML 10ML VIAL IV ONE ×2 (11:57→12:36)
[2024-11-27] MEDS ORDERED: HYDROmorphone HCL 2 MG/ML VL/or syr ONE ×2 (11:57→12:36)
[2024-11-27] MEDS ORDERED: fentaNYL CITRATE 100 MCG/2 ML VL ONE ×3 (11:57→14:03)
[2024-11-27] MEDS ORDERED: MIDAZOLAM HCL 2MG/2ML 2ml VIAL (1mg/ml) ONE ×2 (11:57→12:36)
[2024-11-27] MEDS ORDERED: SUGAMMADEX 200mg/2ml Vial (100MG/ML) IV ONE ×2 (11:57→13:35)
[2024-11-27] MEDS ORDERED: PROPOFOL 10 MG/ML 20 ML IV ONE (11:57)
[2024-11-27] MEDS ORDERED: LIDOCAINE 2% (LOCAL ANESTH.) PF 5ml SDV ONE ×2 (11:57→12:36)
[2024-11-27] MEDS ORDERED: KETOROLAC TROMETH 30 MG/ML 1ML VIAL ONE (12:36)
[2024-11-27] MEDS ORDERED: GLYCOPYRROLATE 0.2 MG/ML 1ML VIAL ONE (12:36)
[2024-11-27] MEDS ORDERED: PIPERACILLIN-TAZOB 3.375GM 100 ML IV SCH (14:00)
[2024-11-27] MEDS ORDERED: LACTATED RINGER'S 1,000 ML IV SCH (14:30)
--- NOTE | 2024-11-27 14:32 | DVHOP2 ---
Operative Report - 2 Report Details Date: 11/27/24 Preop Diagnosis: 1. Cholecystitis Postop Diagnosis: 1. Same Surgeon: Annette Alexandra MD Concrete Worker: None Anesthesiologist: Dr. Nesbitt Anesthesia: Local Drains: 15 Yi Kenrick drain in the right upper quadrant Consent: The surgery and its risks including but not limited to infection, bleeding requiring possible blood transfusion with the risk of hepatitis or HIV infe ction, possible open surgery, possible cystic duct leak or retained common bile duct stone requiring further intervention such as an ERCP, possible perioperative SD or stroke were explained to the patient and his father. All questions were answered to his satisfaction. The patient expressed verbal understanding and wished to proceed with the surgery. Complications: Some bile spillage. Estimated Blood Loss: 75 mL Fluids: 1500 mL Name of Procedure Performed Laparoscopic cholecystectomy Procedure Details Procedure Details: After induction of general anesthesia, patient's abdomen was prepped and draped in standard surgical fashion. A small supraumbilical incision was made and this incision was taken through the abdominal wall down to the fascia which was opened sharply. Peritoneum was then bluntly divided gaining access to the intra-abdominal cavity. Interrupted 0 Vicryl sutures were placed through the fascial incision and using an open technique, Abeba trocar was introduced and secured using the Vicryl sutures. Abdomen was then insufflated to 15 mmHg and camera was inserted. Visual examination of the intestine under the fascial incision appeared normal without injury. Under direct visualization a 5 mm bladeless trocar was placed in the epigastric region and two additional 5 mm bladeless trocars were placed in the right upper quadrant all under direct visualization. Examination of the right upper quadrant revealed a very distended and large gallbladder. An endo needle was used to decompress the gallbladder with bilious fluid aspirated from the gallbladder lumen. Once the gallbladder was decompressed it was grasped and retracted in a cephalad direction. Infundibulum was retracted laterally and careful blunt dissection was performed to identify the cystic duct which appeared normal in size. This was clipped and divided using Endoclips without complication. The cystic artery was located just above the cystic duct and this was clipped and divided using Endoclips without complication. Gallbladder was then removed from the liver bed using electrocautery. There was some bile spillage but no stones were lost. Gallbladder was then removed from the abdominal cavity using an endo pouch bag and sent off the surgical field. Abdomen was then re-insufflated. Hemostasis i n the liver bed was achieved using electrocautery. Right upper quadrant was then well irrigated and Joao hemostatic powder was sprayed onto the gallbladder fossa for additional hemostasis. A 15 Yi Kenrick drain was placed in the right upper quadrant and brought out through the 5 mm trocar site laterally and secured to the skin using 3-0 nylon sutures. The rest of the trocars were then removed under direct visualization as the abdomen was deflated. Additional interrupted 0 Vicryl sutures were placed through the supraumbilical fascial incision and all sutures were tied down closing off the supraumbilical fascia. Surgical sites were irrigated injected with 20 mL of 1% lidocaine with epinephrine. Skin incisions were closed using 4-0 Monocryl sutures in subcuticular fashion. Surgical sites were cleaned and dried and dressings were applied. Sponge, needle, instrument count at the end of the case were reported to be correct by the nursing staff. The patient tolerated the procedure well. At the time of dictation he is being awakened from general anesthesia. Specimen: Gallbladder Condition Stable Disposition Still a Patient ANNETTE ALEXANDRA MD Nov 27, 2024 14:32
[2024-11-27] MEDS: ONDANSETRON HCL 4 MG/2 ML VIAL IV ONE (14:45)
[2024-11-27] MEDS ORDERED: HYDROmorphone HCL 2 MG/ML VL/or syr IV PRN (14:45)
[2024-11-27] MEDS: ceFAZolin 2 GM/D5W50ml 50 ML IV ONE (15:14)
[2024-11-27] MEDS: LIDOCAINE W/ EPINEPHRINE 1% 20ML VIAL ONE (15:14)
[2024-11-27] MEDS: ACETAMINOPHEN IV 1000 MG/100ML (10MG/ML) IV ONE (15:30)
[2024-11-27] MEDS: ALBUTEROL SULF 2.5 MG/0.5ML(0.5%) NEB SOLN NEB STA (15:45)
--- NOTE | 2024-11-27 16:06 | DVHPNRES ---
Progress Note Date Seen: Nov 27, 2024 Resident Creating Document: MARC SYLVESTER RESIDENT Has the PT tested + for MRSA If YES, has PT been informed?: No Medical Necessity Reason Pt with a Central, PICC or Fol: No Subjective Review of Systems Patient is a 28-year-old Colombian-speaking male with a known history of cerebral palsy, who presented to the Emergency Department with acute onset of severe, non-radiating right upper quadrant (RUQ) abdominal pain. The pain was sudden, sharp, and occurred without any known precipitating factors. During his ED stay, the pain persisted and he developed nausea and vomiting, with decreased oral intake. RUQ ultrasound revealed gallstones with sludge, gallbladder wall thickening (0.5 cm), and no ductal dilation.?CT abdomen and pelvis showed mild fat stranding and pericholecystic fluid, with focal inflammation between the gallbladder and hepatic flexure of the colon, consistent with acute cholecystitis. The appendix measured 6 mm without inflammation. No signs of bowel obstruction, or appendicitis. Laboratory findings were notable for: * Leukocytosis (WBC 24.1 ? 16.0) with neutrophil predominance * Elevated AST/ALT (203/198) with mild downtrend to 119/161 * Ketones 3+, high specific gravity, indicating starvation ketosis and intravascular volume depletion * Normal creatinine (0.75), mild elevation in lactate (1.3 mmol/L) The patient met SIRS criteria due to tachycardia and leukocytosis, and was diagnosed with sepsis secondary to acute cholecystitis, with contributing factors including intravascular volume depletion and starvation ketoacidosis. He was made NPO, started on IV fluid resuscitation and broad-spectrum antibiotics (Zosyn), and admitted to the internal medicine service with surgical consultation. On 11/27/2024, the patient underwent laparoscopic cholecystectomy, which revealed a distended, inflamed gallbladder. The procedure was tolerated well. Currently post-op day 1, the patient reports no new symptoms, and remains hemodynamically stable with down-trending inflammatory markers. He continues on IV hydration and antibiotics, is closely monitored fand is planned for gradual diet advancement Constitutional: No fever, chills; fatigue present GI: No nausea, vomiting, or diarrhea; mild right upper quadrant discomfort : No dysuria or frequency CV: Denies chest pain or palpitations Respiratory: Denies shortness of breath or cough Neuro: Alert and oriented x3, no headache or visual changes Skin: No rashes or wounds reported Musculoskeletal: Mild surgical site soreness Objective vital signs Vital Sign Date Time Temp Pulse Resp B/P (MAP) Pulse Ox O2 Delivery O2 Flow Rate FiO2 11/27/24 09:00 98.1 113 14 128/71 (90) 91 98.1 11/27/24 07:30 Room Air* 0 21 Total Intake and Output 11/26/24 11/26/24 11/27/24 15:00 23:00 07:00 Intake Total 500 ml Balance 500 ml medications Current Medications Medications Dose Ordered Sig/Sebastian Route Start Time Stop Time Status Last Admin Dose Admin Pantoprazole Sodium 40 mg DAILY IV 11/27/24 10:00 11/27/24 09:59 40 MG Ondansetron HCl 4 mg Q4HP PRN IV 11/26/24 23:45 Morphine Sulfate 2 mg Q4HPRN PRN IV 11/26/24 23:45 Lactated Ringer's 1,000 ml @ 75 mls/hr [id number] IV 11/27/24 14:30 Piperacillin Sod/ Tazobactam Sod 100 ml @ 25 mls/hr Q8H IV 11/27/24 21:30 Examination Gen: Mild distress from post-op pain, NAD HEENT: NCAT, mucous membranes moist, anicteric sclera Neck: No JVD, supple CV: RRR, no murmurs Resp: CTAB bilaterally Abdomen: Tender to palpation in RUQ and abdirashid-umbilical area, well-healing laparoscopic incisions, no signs of peritonitis, bowel sounds present Extremities: No edema, pulses 2+ Neuro: Alert, CN IIXII intact, normal tone, no focal deficits Skin: Clean, dry, and intact Surgical site: Lap yosef sites clean laboratory and microbiology Laboratory Tests 11/27/24 05:32 Test 11/27/24 05:32 Range/Units Serum Glucose 121 H 74-106 mg/dL Problem List/Assessment/Plan Problem List/Assessment/Plan 1. Sepsis secondary to acute cholecystitis * Meets SIRS criteria: Tachycardia + leukocytosis * Source: Confirmed acute cholecystitis with sludge, stones, and thickened GB wall on RUQ US * Now post-laparoscopic cholecystectomy * Also supported by mild elevation in LFTs and imaging findings * Rule-out: other intra-abdominal infections (e.g., appendicitis, colitis) based on CT 2. Post-operative state: POD#1 laparoscopic cholecystectomy * Tolerating recovery well * Continue monitoring vitals, pain, and surgical site 3. Starvation ketoacidosis * elevated ketones in urine 4. Intravascular volume depletion * Clinical dehydration signs * Concentrated urine SG >1.050, mild hypotension 5. Transaminitis secondary to cholecystitis * AST and ALT elevated * No biliary obstruction or hepatocellular failure TREATMENT PLAN (SYSTEM-HATCH) Infectious Disease: * Continue Zosyn IV for broad-spectrum coverage (can de-escalate based on culture/surgery findings) GI/Surgery: * Monitor for signs of bile leak or infection post-op * Daily abdominal exam, strict NPO until cleared by surgery * Advance to clear liquids Pain Management: * Continue Morphine 2 mg IV PRN q4h for pain >7 * Acetaminophen 650 mg PO q6h scheduled if able to tolerate PO Electrolyte/Metabolic: * Maintain IV hydration with LR at 75 mL/hr * Monitor daily CMP and lactate * Monitor urine output, continue strict I/Os * Replete electrolytes as needed Pulmonary: * Incentive spirometry q1h while awake * Encourage ambulation to prevent atelectasis * Monitor for post-op hypoxia (SpO2 ?92%) Cardiovascular: * Monitor for persistent tachycardia * Serial vitals q4h GI Prophylaxis: * Pantoprazole 40 mg IV daily Nausea/Vomiting: * Ondansetron 4 mg IV q4h PRN Prophylaxis Orders: * Incentive spirometer * Sequential compression devices (SCDs) Case discussed in detail with the attending physician, including the clinical presentation, diagnostic workup, and comprehensive management plan. The patient and father was present for the discussion and demonstrated understanding of his condition and the proposed plan. Plan discussed with: Patient, Other (father) Date of Service: Nov 27, 2024 Billing Provider: SOL MITCHELL MD Common Visit Codes: [id number] INP/OBS CARE(HIGH) MARC SYLVESTER RESIDENT Nov 27, 2024 16:06 SOL MITCHELL MD Dec 06, 2024 01:15
--- NOTE | 2024-11-27 17:16 | DVH ---
CHEST RADIOGRAPH Indication: POST OP Technique: Single frontal view of the chest was obtained COMPARISON: None FINDINGS: Lines and Tubes: None Lungs: Moderate interstitial pulmonary edema. Pleura: Moderate bilateral pleural effusions. No pneumothorax. Cardiomediastinal contours: Cardiomegaly Bones: Unremarkable IMPRESSION: 1. Moderate interstitial pulmonary edema. 2. Moderate bilateral pleural effusions.
[2024-11-27] MEDS: LACTATED RINGER'S 1,000 ML IV SCH (19:30)
[2024-11-27] MEDS ORDERED: cefTRIAXone 1GM/50ML D5W 50 ML IV SCH (21:00)
[2024-11-27] MEDS: PIPERACILLIN-TAZOB 3.375GM 100 ML IV SCH (21:25)
[2024-11-28] VITALS (10 sets, daily range): BP systolic 117–131; BP diastolic 71–84; PULSE 93–110; RESP 16–21; TEMP 96.9–99.9; O2SAT 93–98
[2024-11-28 06:10] LABS: Hematocrit 38.9 % (41.0-53.0); Hemoglobin 13.5 g/dL (13.5-17.5); Mean Corpuscular Hemoglobin 30.7 pg (28.0-32.0); Mean Corpuscular Volume 88.4 fL (80.0-100.0); Nucleated Red Blood Cells % 0.0 %
[2024-11-28 06:30] LABS: Alanine Aminotransferase 194 U/L (7-40); Albumin 3.5 g/dL (3.2-4.8); Alkaline Phosphatase 96 U/L (46-116); Anion Gap 10 (5-15); BUN/Creatinine Ratio 11.9 (10.0-20.0); Blood Urea Nitrogen 7 mg/dL (9-23); Calcium 8.2 mg/dL (8.7-10.4); Carbon Dioxide 24 mmol/L (20-31); Chloride 107 mmol/L (98-107); Glucose 138 mg/dL (74-106); Potassium 3.9 mmol/L (3.5-5.1); Sodium 141 mmol/L (136-145); Total Protein 5.8 g/dL (5.7-8.2)
[2024-11-28 06:31] LABS: Bilirubin, Total 0.6 mg/dL (0.2-1.0)
--- NOTE | 2024-11-28 16:44 | DVHPNRES ---
Progress Note Date Seen: Nov 28, 2024 Resident Creating Document: MARC SYLVESTER RESIDENT Has the PT tested + for MRSA If YES, has PT been informed?: No Medical Necessity Reason Pt with a Central, PICC or Fol: No Subjective Review of Systems Patient is a 28-year-old male with a known history of cerebral palsy, who presented to the Emergency Department with acute onset of severe, non-radiating right upper quadrant (RUQ) abdominal pain. The pain was sudden, sharp, and occurred without any known precipitating factors. During his ED stay, the pain persisted and he developed nausea and vomiting, with decreased oral intake. RUQ ultrasound revealed gallstones with sludge, gallbladder wall thickening (0.5 cm), and no ductal dilation.?CT abdomen and pelvis showed mild fat stranding and pericholecystic fluid, with focal inflammation between the gallbladder and hepatic flexure of the colon, consistent with acute cholecystitis. The appendix measured 6 mm without inflammation. No signs of bowel obstruction, or appendicitis. Laboratory findings were notable for: * Leukocytosis (WBC 24.1 ? 16.0) with neutrophil predominance * Elevated AST/ALT (203/198) with mild downtrend to 119/161 * Ketones 3+, high specific gravity, indicating starvation ketosis and intravascular volume depletion * Normal creatinine (0.75), mild elevation in lactate (1.3 mmol/L) The patient met SIRS criteria due to tachycardia and leukocytosis, and was diagnosed with sepsis secondary to acute cholecystitis, with contributing factors including intravascular volume depletion and starvation ketoacidosis. He was made NPO, started on IV fluid resuscitation and broad-spectrum antibiotics (Zosyn), and admitted to the internal medicine service with surgical consultation. On 11/27/2024, the patient underwent laparoscopic cholecystectomy, which revealed a distended, inflamed gallbladder. The procedure was tolerated well. Currently post-op day 1, the patient reports no new symptoms, and remains hemodynamically stable with down-trending inflammatory markers. He continues on IV hydration and antibiotics, is closely monitored fand is planned for gradual diet advancement 11/28/24 28-year-old male, post-operative day 1 following laparoscopic cholecystectomy on 11/27/2024 for sepsis secondary to acute cholecystitis, presents with no new complaints. Pain is well controlled. No nausea, vomiting, or shortness of breath. Denies urinary symptoms. Tolerating current care and diet advancement to full liquids planned today. Constitutional: No fever, chills; fatigue present GI: No nausea, vomiting, or diarrhea; mild right upper quadrant discomfort : No dysuria or frequency CV: Denies chest pain or palpitations Respiratory: Denies shortness of breath or cough Neuro: Alert and oriented x3, no headache or visual changes Skin: No rashes or wounds reported Musculoskeletal: Mild surgical site soreness Objective vital signs Vital Sign Date Time Temp Pulse Resp B/P (MAP) Pulse Ox O2 Delivery O2 Flow Rate FiO2 11/28/24 13:00 97.6 110 17 125/84 (98) 95 97.6 11/28/24 07:30 Nasal Cannula* 3 32 Total Intake and Output 11/27/24 11/27/24 11/28/24 15:00 23:00 07:00 Intake Total 100 ml 200 ml Output Total 25 ml 95 ml 30 ml Balance 75 ml -95 ml 170 ml medications Current Medications Medications Dose Ordered Sig/Sebastian Route Start Time Stop Time Status Last Admin Dose Admin Pantoprazole Sodium 40 mg DAILY IV 11/27/24 10:00 11/28/24 08:46 40 MG Ondansetron HCl 4 mg Q4HP PRN IV 11/26/24 23:45 Morphine Sulfate 2 mg Q4HPRN PRN IV 11/26/24 23:45 Piperacillin Sod/ Tazobactam Sod 100 ml @ 25 mls/hr Q8H IV 11/27/24 21:30 11/28/24 12:50 25 MLS/HR Lactated Ringer's 1,000 ml @ 50 mls/hr Q20H IV 11/27/24 17:00 11/28/24 12:50 50 MLS/HR Examination Gen: Mild distress from post-op pain, NAD HEENT: NCAT, mucous membranes moist, anicteric sclera Neck: No JVD, supple CV: RRR, no murmurs Resp: CTAB bilaterally Abdomen: Tender to palpation in RUQ and abdirashid-umbilical area, well-healing laparoscopic incisions, no signs of peritonitis, bowel sounds present Extremities: No edema, pulses 2+ Neuro: Alert, CN IIXII intact, normal tone, no focal deficits Skin: Clean, dry, and intact Surgical site: Lap yosef sites clean laboratory and microbiology Laboratory Tests 11/28/24 05:10 Test 11/28/24 05:10 Range/Units Serum Glucose 138 H 74-106 mg/dL Microbiology Date/Time Source Procedure Growth Status 11/26/24 20:50 Blood Blood Culture - Preliminary NO GROWTH AFTER 24 HOURS OF INCUBATION. Resulted Labs and/or images reviewed: Labs reviewed by me Problem List/Assessment/Plan Problem List/Assessment/Plan 1. Sepsis secondary to acute cholecystitis * Meets SIRS criteria: Tachycardia + leukocytosis * Source: Confirmed acute cholecystitis with sludge, stones, and thickened GB wall on RUQ US * Now post-laparoscopic cholecystectomy * Also supported by mild elevation in LFTs and imaging findings * Rule-out: other intra-abdominal infections (e.g., appendicitis, colitis) based on CT 2. Post-operative state: POD#1 laparoscopic cholecystectomy * Tolerating recovery well * Continue monitoring vitals, pain, and surgical site 3. Starvation ketoacidosis * elevated ketones in urine 4. Intravascular volume depletion * Clinical dehydration signs * Concentrated urine SG >1.050, mild hypotension 5. Transaminitis secondary to cholecystitis * AST and ALT elevated * No biliary obstruction or hepatocellular failure TREATMENT PLAN (SYSTEM-HATCH) Infectious Disease: * Continue Zosyn IV for broad-spectrum coverage (can de-escalate based on culture/surgery findings) GI/Surgery: * Monitor for signs of bile leak or infection post-op * Daily abdominal exam, Continue post-op monitoring ADRIANA drain output monitoring Advance diet to full liquids today Await surgery clearance for discharge Encourage ambulation Pain Management: * Continue Morphine 2 mg IV PRN q4h for pain >7 * Acetaminophen 650 mg PO q6h scheduled if able to tolerate PO Electrolyte/Metabolic: * Maintain IV hydration with LR at 75 mL/hr * Monitor daily CMP and lactate * Monitor urine output, continue strict I/Os * Replete electrolytes as needed Pulmonary: * Incentive spirometry q1h while awake * Encourage ambulation to prevent atelectasis * Monitor for post-op hypoxia (SpO2 ?92%) Cardiovascular: * Monitor for persistent tachycardia * Serial vitals q4h GI Prophylaxis: * Pantoprazole 40 mg IV daily Nausea/Vomiting: * Ondansetron 4 mg IV q4h PRN Prophylaxis Orders: * Incentive spirometer * Sequential compression devices (SCDs) Case discussed in detail with the attending physician, including the clinical presentation, diagnostic workup, and comprehensive management plan. The patient and father was present for the discussion and demonstrated understanding of his condition and the proposed plan. Plan discussed with: Patient, Other (father) My Orders My Orders Orders - MARC SYLVESTER Procedure Category Date Status Time Complete Blood Count LAB 11/29/24 Verified 04:00 Comprehensive LAB 11/29/24 Verified Metabolic Panel 04:00 Date of Service: Nov 28, 2024 Billing Provider: SOL MITCHELL MD Common Visit Codes: [id number] INP/OBS CARE(HIGH) MARC SYLVESTER RESIDENT Nov 28, 2024 16:44 SOL MITCHELL MD Dec 06, 2024 01:18
[2024-11-29] VITALS (9 sets, daily range): BP systolic 110–154; BP diastolic 67–99; PULSE 75–101; RESP 17–20; TEMP 97.5–98.7; O2SAT 91–98
[2024-11-29 06:15] LABS: Hematocrit 39.1 % (41.0-53.0); Hemoglobin 13.4 g/dL (13.5-17.5); Mean Corpuscular Hemoglobin 30.6 pg (28.0-32.0); Mean Corpuscular Volume 88.9 fL (80.0-100.0); Nucleated Red Blood Cells % 0.1 %
[2024-11-29 06:37] LABS: Albumin 3.5 g/dL (3.2-4.8); Alkaline Phosphatase 94 U/L (46-116); Anion Gap 9 (5-15); BUN/Creatinine Ratio 10.9 (10.0-20.0); Calcium 9.0 mg/dL (8.7-10.4); Carbon Dioxide 25 mmol/L (20-31); Chloride 107 mmol/L (98-107); Glucose 98 mg/dL (74-106); Potassium 3.8 mmol/L (3.5-5.1); Sodium 141 mmol/L (136-145); Total Protein 5.9 g/dL (5.7-8.2)
[2024-11-29 06:38] LABS: Bilirubin, Total 0.5 mg/dL (0.2-1.0)
[2024-11-29 06:48] LABS: Alanine Aminotransferase 168 U/L (7-40); Blood Urea Nitrogen 7 mg/dL (9-23)
[2024-11-29] MEDS: LACTATED RINGER'S 1,000 ML IV SCH (09:24)
[2024-11-29] MEDS: FUROSEMIDE 20 MG/2 ML VIAL IV ONE (12:26)
--- NOTE | 2024-11-29 12:27 | DVH ---
INDICATION: oxygen desaturtion TECHNIQUE: Frontal view of the chest. COMPARISON: XY CHEST PORTABLE on DOS: 11/27/24 FINDINGS: Lines and Tubes: None Lungs: Moderate interstitial pulmonary edema. Pleura: Moderate bilateral pleural effusions. No pneumothorax. Cardiomediastinal contours: Cardiomegaly Bones: Unremarkable IMPRESSION: 1. Moderate interstitial pulmonary edema. 2. Moderate bilateral pleural effusions.
--- NOTE | 2024-11-29 14:50 | DVHPN2 ---
Subjective Date Seen: Nov 29, 2024 Post op day Post op day: 2 Patient reports: No new complaints General: Normal HNT: Normal Cardiovascular: Normal Respiratory: Other Gastrointestinal: Normal Genitourinary: Normal Musculoskeletal: Normal Objective Vitals Vital Sign Date Time Temp Pulse Resp B/P (MAP) Pulse Ox O2 Delivery O2 Flow Rate FiO2 11/29/24 13:00 97.5 91 18 154/99 (117) 91 97.5 11/29/24 07:30 Nasal Cannula* 2 28 Total Intake and Output 11/28/24 11/28/24 11/29/24 15:00 23:00 07:00 Intake Total 1100 ml 400 ml 1050 ml Output Total 660 ml Balance 1100 ml 400 ml 390 ml Medications Current Medications Medications Dose Ordered Sig/Sebastian Route Start Time Stop Time Status Last Admin Dose Admin Pantoprazole Sodium 40 mg DAILY IV 11/27/24 10:00 11/29/24 09:23 40 MG Ondansetron HCl 4 mg Q4HP PRN IV 11/26/24 23:45 Morphine Sulfate 2 mg Q4HPRN PRN IV 11/26/24 23:45 Piperacillin Sod/ Tazobactam Sod 100 ml @ 25 mls/hr Q8H IV 11/27/24 21:30 11/29/24 12:27 25 MLS/HR General: Normal Head/Eyes: Normal ENT: Normal Neck: Normal Lungs: On oxygen Abdominal: Normal, Soft Labs and Microbiology Laboratory Tests 11/29/24 05:08 Test 11/29/24 05:08 Range/Units Serum Glucose 98 74-106 mg/dL Ass/Plan Labs and/or images reviewed: Labs reviewed by ok Problem List 1. Sepsis secondary to acute cholecystitis * Meets SIRS criteria: Tachycardia + leukocytosis * Source: Confirmed acute cholecystitis with sludge, stones, and thickened GB wall on RUQ US * Now post-laparoscopic cholecystectomy * Also supported by mild elevation in LFTs and imaging findings * Rule-out: other intra-abdominal infections (e.g., appendicitis, colitis) based on CT 2. Post-operative state: POD#1 laparoscopic cholecystectomy * Tolerating recovery well * Continue monitoring vitals, pain, and surgical site 3. Starvation ketoacidosis * elevated ketones in urine 4. Intravascular volume depletion * Clinical dehydration signs * Concentrated urine SG >1.050, mild hypotension 5. Transaminitis secondary to cholecystitis * AST and ALT elevated * No biliary obstruction or hepatocellular failure TREATMENT PLAN (SYSTEM-HATCH) Infectious Disease: * Continue Zosyn IV for broad-spectrum coverage (can de-escalate based on culture/surgery findings) GI/Surgery: * Monitor for signs of bile leak or infection post-op * Daily abdominal exam, Continue post-op monitoring ADRIANA drain output monitoring Advance diet to full liquids today Await surgery clearance for discharge Encourage ambulation Pain Management: * Continue Morphine 2 mg IV PRN q4h for pain >7 * Acetaminophen 650 mg PO q6h scheduled if able to tolerate PO Electrolyte/Metabolic: * Maintain IV hydration with LR at 75 mL/hr * Monitor daily CMP and lactate * Monitor urine output, continue strict I/Os * Replete electrolytes as needed Pulmonary: * Incentive spirometry q1h while awake * Encourage ambulation to prevent atelectasis * Monitor for post-op hypoxia (SpO2 ?92%) Cardiovascular: * Monitor for persistent tachycardia * Serial vitals q4h GI Prophylaxis: * Pantoprazole 40 mg IV daily Nausea/Vomiting: * Ondansetron 4 mg IV q4h PRN Prophylaxis Orders: * Incentive spirometer * Sequential compression devices (SCDs) Case discussed in detail with the attending physician, including the clinical presentation, diagnostic workup, and comprehensive management plan. The patient and father was present for the discussion and demonstrated understanding of his condition and the proposed plan. Problems(with codes): (1) Cholecystitis Assessment/Plan s/p laparoscopic cholecystectomy doing well no new complaints abdomen soft, non distended, non tender wounds ok susie intact ADRIANA drain serous fluid minimal labs ok wbc normal , Bili normal Plan: continue current treatment possible removal of ADRIANA drain tomorrow Prognosis: Good Plan discussed with Resident Dr. Nasrin lockhart Visit Coding Surgery Date of Service if different f: Nov 29, 2024 Billing Provider: LASHONDA JETER MD Surgery Visit Codes: [id number] INP/OBS CARE(HIGH) CAROLINE CHOUDHARY NP Nov 29, 2024 14:50
--- NOTE | 2024-11-29 16:37 | DVHPNRES ---
Progress Note Date Seen: Nov 29, 2024 Resident Creating Document: MARC SYLVESTER RESIDENT Has the PT tested + for MRSA If YES, has PT been informed?: No Medical Necessity Reason Pt with a Central, PICC or Fol: No Subjective Review of Systems Patient is a 28-year-old male with a known history of cerebral palsy, who presented to the Emergency Department with acute onset of severe, non-radiating right upper quadrant (RUQ) abdominal pain. The pain was sudden, sharp, and occurred without any known precipitating factors. During his ED stay, the pain persisted and he developed nausea and vomiting, with decreased oral intake. RUQ ultrasound revealed gallstones with sludge, gallbladder wall thickening (0.5 cm), and no ductal dilation.?CT abdomen and pelvis showed mild fat stranding and pericholecystic fluid, with focal inflammation between the gallbladder and hepatic flexure of the colon, consistent with acute cholecystitis. The appendix measured 6 mm without inflammation. No signs of bowel obstruction, or appendicitis. Laboratory findings were notable for: * Leukocytosis (WBC 24.1 ? 16.0) with neutrophil predominance * Elevated AST/ALT (203/198) with mild downtrend to 119/161 * Ketones 3+, high specific gravity, indicating starvation ketosis and intravascular volume depletion * Normal creatinine (0.75), mild elevation in lactate (1.3 mmol/L) The patient met SIRS criteria due to tachycardia and leukocytosis, and was diagnosed with sepsis secondary to acute cholecystitis, with contributing factors including intravascular volume depletion and starvation ketoacidosis. He was made NPO, started on IV fluid resuscitation and broad-spectrum antibiotics (Zosyn), and admitted to the internal medicine service with surgical consultation. On 11/27/2024, the patient underwent laparoscopic cholecystectomy, which revealed a distended, inflamed gallbladder. The procedure was tolerated well. Currently post-op day 1, the patient reports no new symptoms, and remains hemodynamically stable with down-trending inflammatory markers. He continues on IV hydration and antibiotics, is closely monitored fand is planned for gradual diet advancement 11/28/24 28-year-old male, post-operative day 1 following laparoscopic cholecystectomy on 11/27/2024 for sepsis secondary to acute cholecystitis, presents with no new complaints. Pain is well controlled. No nausea, vomiting, or shortness of breath. Denies urinary symptoms. Tolerating current care and diet advancement to full liquids planned today. 11/29/24 The patient is recovering post-laparoscopic cholecystectomy for sepsis secondary to acute cholecystitis. He reports feeling improved, tolerating a soft mechanical diet, and has been having regular bowel movements and passing flatus. He denies chest pain, abdominal pain, nausea, or vomiting. He is currently on supplemental oxygen, and weaning is in progress.SpO2: Improving, still requiring supplemental O2, EZ-PAP/C-PAP initiated Constitutional: No fever, chills; fatigue present GI: No nausea, vomiting, or diarrhea; mild right upper quadrant discomfort : No dysuria or frequency CV: Denies chest pain or palpitations Respiratory: Denies shortness of breath or cough Neuro: Alert and oriented x3, no headache or visual changes Skin: No rashes or wounds reported Musculoskeletal: Mild surgical site soreness Objective vital signs Vital Sign Date Time Temp Pulse Resp B/P (MAP) Pulse Ox O2 Delivery O2 Flow Rate FiO2 11/29/24 13:00 97.5 91 18 154/99 (117) 91 97.5 11/29/24 07:30 Nasal Cannula* 2 28 Total Intake and Output 11/28/24 11/28/24 11/29/24 15:00 23:00 07:00 Intake Total 1100 ml 400 ml 1050 ml Output Total 660 ml Balance 1100 ml 400 ml 390 ml medications Current Medications Medications Dose Ordered Sig/Sebastian Route Start Time Stop Time Status Last Admin Dose Admin Pantoprazole Sodium 40 mg DAILY IV 11/27/24 10:00 11/29/24 09:23 40 MG Ondansetron HCl 4 mg Q4HP PRN IV 11/26/24 23:45 Morphine Sulfate 2 mg Q4HPRN PRN IV 11/26/24 23:45 Piperacillin Sod/ Tazobactam Sod 100 ml @ 25 mls/hr Q8H IV 11/27/24 21:30 11/29/24 12:27 25 MLS/HR Examination Gen: Mild distress from post-op pain, NAD HEENT: NCAT, mucous membranes moist, anicteric sclera Neck: No JVD, supple CV: RRR, no murmurs Resp: CTAB bilaterally Abdomen: Tender to palpation in RUQ and abdirashid-umbilical area, well-healing laparoscopic incisions, no signs of peritonitis, bowel sounds present Extremities: No edema, pulses 2+ Neuro: Alert, CN IIXII intact, normal tone, no focal deficits Skin: Clean, dry, and intact Surgical site: Lap yosef sites clean laboratory and microbiology Laboratory Tests 11/29/24 05:08 Test 11/29/24 05:08 Range/Units Serum Glucose 98 74-106 mg/dL Microbiology Date/Time Source Procedure Growth Status 11/26/24 20:50 Blood Blood Culture - Preliminary NO GROWTH AFTER 48 HOURS OF INCUBATION. Resulted PATIENT: TAMMIE BRIAN ACCT: [id number] UNIT: [id number] : 1995 LOC: [facility] ROOM / BED: 0233T / A AGE / SEX: 29 / M ADM STATUS: ADM IN SERVICE 1153 ORDERING PHYSICIAN: MARC SYLVESTER RESIDENT PROCEDURE(s): CXRP - CHEST PORTABLE REASON: oxygen desaturtion ORDER NUMBER(s): [id number], ACCESSION NUMBER(s): [id number] INDICATION: oxygen desaturtion TECHNIQUE: Frontal view of the chest. COMPARISON: XY CHEST PORTABLE on DOS: 11/27/24 FINDINGS: Lines and Tubes: None Lungs: Moderate interstitial pulmonary edema. Pleura: Moderate bilateral pleural effusions. No pneumothorax. Cardiomediastinal contours: Cardiomegaly Bones: Unremarkable IMPRESSION: 1. Moderate interstitial pulmonary edema. 2. Moderate bilateral pleural effusions. ATED BY: EMILY RICO MD DICTATED DATE/TIME: 11/29/24 1224 SIGNED BY: EMILY RICO MD SIGNED DATE/TIME: 11/29/24 1224 CC: Labs and/or images reviewed: Labs reviewed by ar Problem List/Assessment/Plan Problem List/Assessment/Plan 1. Sepsis secondary to acute cholecystitis * Meets SIRS criteria: Tachycardia + leukocytosis * Source: Confirmed acute cholecystitis with sludge, stones, and thickened GB wall on RUQ US * Now post-laparoscopic cholecystectomy * Also supported by mild elevation in LFTs and imaging findings * Rule-out: other intra-abdominal infections (e.g., appendicitis, colitis) based on CT 2. Post-operative state: POD#1 laparoscopic cholecystectomy * Tolerating recovery well * Continue monitoring vitals, pain, and surgical site 3. Starvation ketoacidosis * elevated ketones in urine 4. Intravascular volume depletion * Clinical dehydration signs * Concentrated urine SG >1.050, mild hypotension 5. Transaminitis secondary to cholecystitis * AST and ALT elevated * No biliary obstruction or hepatocellular failure TREATMENT PLAN (SYSTEM-HATCH) Infectious Disease: * Continue Zosyn IV for broad-spectrum coverage (can de-escalate based on culture/surgery findings) GI/Surgery: * Monitor for signs of bile leak or infection post-op * Daily abdominal exam, Continue post-op monitoring Monitor pain and wound healing ADRIANA drain: monitor output today; plan for removal tomorrow if minimal Continue soft mechanical diet; advance as tolerated Monitor vitals, ambulation, bowel movements Await surgery clearance for discharge Encourage ambulation Pain Management: * Continue Morphine 2 mg IV PRN q4h for pain >7 * Acetaminophen 650 mg PO q6h scheduled if able to tolerate PO Electrolyte/Metabolic: * Maintain IV hydration with LR at 75 mL/hr * Monitor daily CMP and lactate * Monitor urine output, continue strict I/Os * Replete electrolytes as needed Pulmonary: * Incentive spirometry q1h while awake * Encourage ambulation to prevent atelectasis * Monitor for post-op hypoxia (SpO2 ?92%) Continue EZ-PAP, CPAP as needed Monitor SpO? and work of breathing Daily CXR if respiratory status worsens Consider repeat dose of IV Lasix if fluid overload persists Continue weaning from oxygen Cardiovascular: * Monitor for persistent tachycardia * Serial vitals q4h GI Prophylaxis: * Pantoprazole 40 mg IV daily Nausea/Vomiting: * Ondansetron 4 mg IV q4h PRN Prophylaxis Orders: * Incentive spirometer * Sequential compression devices (SCDs) Case discussed in detail with the attending physician, including the clinical presentation, diagnostic workup, and comprehensive management plan. The patient and father was present for the discussion and demonstrated understanding of his condition and the proposed plan. Plan discussed with: Patient, Other (father) My Orders My Orders Orders - MARC SYLVESTER RESIDENT Procedure Category Date Status Time Communication Order ORDERS 11/29/24 Transmitted 06:39 Mechanical Soft Diet DIET 11/29/24 Transmitted Lunch Chest Portable XY 11/29/24 Resulted 11:53 BIPAP RT 11/29/24 Logged 15:41 Complete Blood Count LAB 11/30/24 Verified 04:00 Comprehensive LAB 11/30/24 Verified Metabolic Panel 04:00 Date of Service: Nov 29, 2024 Billing Provider: SOL MITCHELL MD Common Visit Codes: [id number] INP/OBS CARE(HIGH) MARC SYLVESTER RESIDENT Nov 29, 2024 16:37 SOL MITCHELL MD Dec 06, 2024 01:29
[2024-11-30 05:00] VITALS: BP 118/74; PULSE 89; RESP 18; TEMP 98.1; O2SAT 94
[2024-11-30 06:05] LABS: Hematocrit 46.9 % (41.0-53.0); Hemoglobin 16.3 g/dL (13.5-17.5); Mean Corpuscular Hemoglobin 30.9 pg (28.0-32.0); Mean Corpuscular Volume 89.0 fL (80.0-100.0); Nucleated Red Blood Cells % 0.0 %
[2024-11-30 06:22] LABS: Albumin 4.3 g/dL (3.2-4.8); Anion Gap 11 (5-15); BUN/Creatinine Ratio 14.5 (10.0-20.0); Bilirubin, Total 0.7 mg/dL (0.2-1.0); Blood Urea Nitrogen 11 mg/dL (9-23); Calcium 9.1 mg/dL (8.7-10.4); Carbon Dioxide 24 mmol/L (20-31); Chloride 106 mmol/L (98-107); Glucose 99 mg/dL (74-106); Potassium 3.8 mmol/L (3.5-5.1); Sodium 141 mmol/L (136-145); Total Protein 7.0 g/dL (5.7-8.2)
[2024-11-30 06:34] LABS: Alanine Aminotransferase 190 U/L (7-40); Alkaline Phosphatase 123 U/L (46-116)
[2024-11-30 07:30] VITALS: O2SAT 94
[2024-11-30 08:00] VITALS: PULSE 87; RESP 18; O2SAT 94
[2024-11-30 09:00] VITALS: BP 129/81; PULSE 91; RESP 18; TEMP 98.1; O2SAT 96
[2024-11-30] MEDS ORDERED: AUG875T PO (10:58)
[2024-11-30] MEDS ORDERED: IBUP1TAB5 PO (10:59)
--- NOTE | 2024-11-30 12:03 | DVHDSRES ---
Discharge Summary Date of Admission Resident Creating Document: MARC SYLVESTER RESIDENT Nov 26, 2024 at 23:39 Date of Discharge: Nov 30, 2024 Admitting Diagnosis Sepsis secondary to acute cholecystitis * Meets SIRS criteria: Tachycardia + leukocytosis * Source: Confirmed acute cholecystitis with sludge, stones, and thickened GB wall on RUQ US * Now post-laparoscopic cholecystectomy * Also supported by mild elevation in LFTs and imaging findings * Rule-out: other intra-abdominal infections (e.g., appendicitis, colitis) based on CT 2. Post-operative state: laparoscopic cholecystectomy * Tolerating recovery well * Continue monitoring vitals, pain, and surgical site 3. Starvation ketoacidosis * elevated ketones in urine 4. Intravascular volume depletion * Clinical dehydration signs * Concentrated urine SG >1.050, mild hypotension 5. Transaminitis secondary to cholecystitis * AST and ALT elevated * No biliary obstruction or hepatocellular failure Wounds: Surgical sites clean and dry Labs/Diagnostic Data: Laboratory Results Test 11/30/24 05:20 11/27/24 05:53 11/27/24 05:32 11/27/24 00:16 White Blood Count 9.1 10^3/uL (4.4-10.8) Red Blood Count 5.28 10^6/uL (4.5-5.90) Hemoglobin 16.3 g/dL (13.5-17.5) Hematocrit 46.9 % (41.0-53.0) Mean Corpuscular Volume 89.0 fL (80.0-100.0) Mean Corpuscular Hemoglobin 30.9 pg (28.0-32.0) Mean Corpuscular Hemoglobin Concent 34.8 g/dL (32.0-36.0) Red Cell Distribution Width 13.2 % (11.8-14.3) Platelet Count 370 10^3/uL (140-450) Mean Platelet Volume 7.8 fL (6.9-10.8) Neutrophils (%) (Auto) 74.2 % (37.0-80.0) Lymphocytes (%) (Auto) 15.3 % (10.0-50.0) Monocytes (%) (Auto) 8.0 % (0.0-12.0) Eosinophils (%) (Auto) 2.2 % (0.0-7.0) Basophils (%) (Auto) 0.3 % (0.0-2.0) Neutrophils # (Auto) 6.8 10 ^3/uL (1.6-8.6) Lymphocytes # (Auto) 1.4 10 ^3/uL (0.4-5.4) Monocytes # (Auto) 0.7 10 ^3/uL (0-1.3) Eosinophils # (Auto) 0.2 10 ^3/uL (0-0.8) Basophils # (Auto) 0 10 ^3/uL (0-0.2) Nucleated Red Blood Cells 0.0 % Sodium Level 141 mmol/L (136-145) Potassium Level 3.8 mmol/L (3.5-5.1) Chloride Level 106 mmol/L (98-107) Carbon Dioxide Level 24 mmol/L (20-31) Anion Gap 11 (5-15) Blood Urea Nitrogen 11 mg/dL (9-23) Creatinine 0.76 mg/dL (0.700-1.30) Glomerular Filtration Rate Calc 123 mL/min (>90) BUN/Creatinine Ratio 14.5 (10.0-20.0) Serum Glucose 99 mg/dL (74-106) Calcium Level 9.1 mg/dL (8.7-10.4) Total Bilirubin 0.7 mg/dL (0.2-1.0) Aspartate Amino Transferase (AST) 73 U/L (13-40) Alanine Aminotransferase (ALT) 190 U/L (7-40) Alkaline Phosphatase 123 U/L (46-116) Total Protein 7.0 g/dL (5.7-8.2) Albumin 4.3 g/dL (3.2-4.8) Lactic Acid Level 1.3 mmol/L (0.4-2.0) Direct Bilirubin 0.1 mg/dL (<0.3) Urine Color Yellow (Yellow) Urine Clarity Clear (Clear) Urine pH 5.5 (5.0-9.0) Urine Specific [place] > 1.050 (1.001-1.035) Urine Protein Trace (Negative) Urine Ketones 3+ (Negative) Urine Blood Negative /uL (Negative) Urine Nitrite Negative (Negative) Urine Bilirubin Negative (Negative) Urine Urobilinogen Normal mg/dL (Negative) Urine Leukocyte Esterase Negative /uL (Negative) Urine RBC None seen /hpf (0 - 3) Urine Microscopic WBC 1 /HPF (0-3) Urine Squamous Epithelial Cells None seen /hpf (<5) Urine Bacteria None seen /hpf (None Seen) Urine Glucose Normal mg/dL (Normal) Test 11/26/24 23:59 11/26/24 16:45 Prothrombin Time 11.0 sec (9.3-11.8) Prothrombin Time INR 1.04 (0.9-1.15) Activated Partial Thromboplast Time 29.9 SEC (24.5-34.5) Lipase 27 U/L (12-53) Other Laboratory Tests 11/30/24 05:20 Brief Hx & Hospital Course: The patient was admitted with sepsis secondary to acute cholecystitis, presenting with tachycardia, leukocytosis, hypotension, and right upper quadrant abdominal pain. Labs showed leukocytosis and elevated inflammatory markers. Initial abdominal ultrasound confirmed gallbladder wall thickening with pericholecystic fluid and gallstones. CT abdomen was consistent with acute cholecystitis without perforation or abscess. Sepsis was attributed to biliary source. The patient was started empirically on IV Zosyn for broad-spectrum coverage and resuscitated with IV fluids for intravascular volume depletion and mild prerenal acute kidney injury (ROBERT, resolved). The patient also had mild starvation ketosis which resolved with enteral nutrition and dextrose-containing fluids. General Surgery was consulted and the patient underwent laparoscopic cholecystectomy with placement of a Hernandez-Beck (ADRIANA) drain. Surgery was uncomplicated, and the patient was transferred post-operatively to the medical- surgical unit. Post-operatively, the patient required oxygen support was managed with EZ-PAP/C-PAP, diuresis using IV Lasix 20 mg once, and supplemental oxygen. He responded well, weaned off respiratory support, and returned to room air. The surgical wounds were monitored daily and remained clean, dry, and intact. The ADRIANA drain was functioning with minimal output. The patient tolerated a soft mechanical diet, was passing flatus, having regular bowel movements, and ambulating with assistance. Pain was controlled with PRN acetaminophen. The patient was cleared by the surgical team for discharge with ADRIANA drain in place, to be removed at the upcoming outpatient appointment. Consults/Reason for consult General Surgery was consulted for acute cholecystitis and the patient underwent laparoscopic cholecystectomy Operations or Procedures Report Details Date: 11/27/24 Preop Diagnosis: 1. Cholecystitis Postop Diagnosis: 1. Same Surgeon: Annette Evans MD Mixer Foam Rubber: None Anesthesiologist: Dr. Nesbitt Anesthesia: Local Drains: 15 Tanzanian Kernick drain in the right upper quadrant Consent: The surgery and its risks including but not limited to infection, bleeding requiring possible blood transfusion with the risk of hepatitis or HIV infection, possible open surgery, possible cystic duct leak or retained common bile duct stone requiring further intervention such as an ERCP, possible perioperative NE or stroke were explained to the patient and his father. All questions were answered to his satisfaction. The patient expressed verbal understanding and wished to proceed with the surgery. Complications: Some bile spillage. Estimated Blood Loss: 75 mL Fluids: 1500 mL Name of Procedure Performed Laparoscopic cholecystectomy Procedure Details Procedure Details: After induction of general anesthesia, patient's abdomen was prepped and draped in standard surgical fashion. A small supraumbilical incision was made and this incision was taken through the abdominal wall down to the fascia which was opened sharply. Peritoneum was then bluntly divided gaining access to the intra-abdominal cavity. Interrupted 0 Vicryl sutures were placed through the fascial incision and using an open technique, Abeba trocar was introduced and secured using the Vicryl sutures. Abdomen was then insufflated to 15 mmHg and camera was inserted. Visual examination of the intestine under the fascial incision appeared normal without injury. Under direct visualization a 5 mm bladeless trocar was placed in the epigastric region and two additional 5 mm bladeless trocars were placed in the right upper quadrant all under direct visualization. Examination of the right upper quadrant revealed a very distended and large gallbladder. An endo needle was used to decompress the gallbladder with bilious fluid aspirated from the gallbladder lumen. Once the gallbladder was decompressed it was grasped and retracted in a cephalad direction. Infundibulum was retracted laterally and careful blunt dissection was performed to identify the cystic duct which appeared normal in size. This was clipped and divided using Endoclips without complication. The cystic artery was located just above the cystic duct and this was clipped and divided using Endoclips without complication. Gallbladder was then removed from the liver bed using electrocautery. There was some bile spillage but no stones were lost. Gallbladder was then removed from the abdominal cavity using an endo pouch bag and sent off the surgical field. Abdomen was then re-insufflated. Hemostasis in the liver bed was achieved using electrocautery. Right upper quadrant was then well irrigated and Joao hemostatic powder was sprayed onto the gallbladder fossa for additional hemostasis. A 15 Tanzanian Kenrick drain was placed in the right upper quadrant and brought out through the 5 mm trocar site laterally and secured to the skin using 3-0 nylon sutures. The rest of the trocars were then removed under direct visualization as the abdomen was deflated. Additional interrupted 0 Vicryl sutures were placed through the supraumbilical fascial incision and all sutures were tied down closing off the supraumbilical fascia. Surgical sites were irrigated injected with 20 mL of 1% lidocaine with epinephrine. Skin incisions were closed using 4-0 Monocryl sutures in subcuticular fashion. Surgical sites were cleaned and dried and dressings were applied. Sponge, needle, instrument count at the end of the case were reported to be correct by the nursing staff. The patient tolerated the procedure well. At the time of dictation he is being awakened from general anesthesia. Specimen: Gallbladder Condition Stable Disposition 2 Still a Patient ANNETTE EVANS MD Nov 27, 2024 14:32 DICTATED BY:ANNETTE EVANS MD DICTATED DATE/TIME:11/27/24 143 ELECTRONICALLY SIGNED BY:ANNETTE EVANS MD 11/27/24 143 ELECTRONICALLY CO-SIGNED BY: Condition at Discharge: Stable Final Diagnosis/Problems List Sepsis secondary to acute cholecystitis (resolved): Met SIRS criteria (tachycardia, leukocytosis), source control achieved via surgery, managed with IV antibiotics and supportive care. Acute cholecystitis with cholelithiasis (resolved): Confirmed radiographically and surgically managed via laparoscopic cholecystectomy. Post-operative state : POD#3, stable surgical site, ambulating, tolerating oral intake. Moderate interstitial pulmonary edema with bilateral pleural effusions (resolved): managed with one-time IV diuresis and EZ-PAP. Hypoxemic respiratory failure (mild, resolved): Secondary to pulmonary congestion; now resolved. Starvation ketosis (resolved): Due to poor oral intake prior to admission, resolved with dextrose and diet resumption. Prerenal ROBETR during to VMN(Type 1, resolved): Due to volume depletion; improved with IVF. No evidence of tubular injury. Rule-out pneumonia: CXR showed no consolidation; respiratory symptoms resolved with fluid removal and oxygen wean. Pneumonia ruled out. Discharge Disposition: Home Discharge Instruct/Medications Diet: Regular Activity: Light activity Activity comment: No lifting weights for 6 weeks. No running for 2 weeks. Follow Up/Referral: General Surgery Follow-Up: * Date: Wednesday, [12/05 5 days from discharge] * Purpose: ADRIANA drain removal, wound assessment, and review of pathology * Location: [facility] Primary Care Physician (PCP): * Date: Within 710 days after discharge * Purpose: Medication reconciliation, labs if needed, general follow-up Medications: Amoxicillin-clavulanate (Augmentin)875 mg/125 mgPO BID x 5 daysPost-operative infection prophylaxis Acetaminophen 500 mG PO PRN Post-operative pain management Continue home medications. New Medications: Amoxicillin & Pot Clavulanate (Augmentin Tablet) 875 Mg Tb 875 MG PO BID for 3 Days, #6 TAB Ibuprofen Micronized (Ibuprofen) 600 Mg Tab 600 MG PO BID PRN for 7 Days, #14 TAB Care Plan: Continue oral antibiotics (Augmentin) to complete treatment course and prevent surgical site infection. ADRIANA drain to remain in place until outpatient surgical follow-up. Continue acetaminophen as needed for post-op pain. Encourage deep breathing exercises, incentive spirometry, and ambulation at home. Monitor for signs of wound infection, fever, drain output increase, or respiratory difficulty. Resume regular diet as tolerated. Follow up with surgery for drain removal and wound evaluation. General Surgery Follow-Up: * Date: Wednesday, [12/05 5 days from discharge] * Purpose: ADRIANA drain removal, wound assessment, and review of pathology * Location: [facility] Primary Care Physician (PCP): * Date: Within 710 days after discharge * Purpose: Medication reconciliation, labs if needed, general follow-up Return Precautions:?Patient is instructed to return to the ED or call 911 for: * Fever >101F * Increased abdominal pain, wound redness, or purulent discharge * Shortness of breath, chest pain, or worsening fatigue * ADRIANA drain output significantly increasing or becoming bloody Scheduled Amoxicillin & Pot Clavulanate (Augmentin Tablet), 875 MG PO BID Scheduled PRN Ibuprofen Micronized (Ibuprofen), 600 MG PO BID PRN Discharge Statement: "Patient was advised to return to the ER or call 911 if any headaches, dizziness, shortness of breath, chest pain, abdominal pain, bleeding, fevers, or worsening of medical condition. Patient was counseled about treatment plan, medications, possible side effects, patientverbalized understanding. All questions were answered to the best of my ability. This discharge took greater then 30 minutes in planning, reviewing documentation, counseling the patient, and discussing with other team members." ASSESSMENT ASSESSMENT Assessment Sepsis secondary to acute cholecystitis (resolved): Met SIRS criteria (tachycardia, leukocytosis), source control achieved via surgery, managed with IV antibiotics and supportive care. Acute cholecystitis with cholelithiasis (resolved): Confirmed radiographically and surgically managed via laparoscopic cholecystectomy. Post-operative state : POD#3, stable surgical site, ambulating, tolerating oral intake. Moderate interstitial pulmonary edema with bilateral pleural effusions (resolved): managed with one-time IV diuresis and EZ-PAP. Hypoxemic respiratory failure (mild, resolved): Secondary to pulmonary congestion; now resolved. Starvation ketosis (resolved): Due to poor oral intake prior to admission, resolved with dextrose and diet resumption. Prerenal ROBERT during to VMN(Type 1, resolved): Due to volume depletion; improved with IVF. No evidence of tubular injury. Rule-out pneumonia: CXR showed no consolidation; respiratory symptoms resolved with fluid removal and oxygen wean. Pneumonia ruled out. Date of Service: Nov 30, 2024 Billing Provider: SOL MITCHELL MD Common Visit Codes: [id number] DISCH DAY >30min MARC SYLVESTER RESIDENT Nov 30, 2024 12:03 SOL MITCHELL MD Dec 06, 2024 21:20
== END 2024-11-30 14:25 | disposition home or self-care (01) | DRG 853 ==
LOC: EDBD 16:12 → ER 16:12 → OVERFLOW 23:39 → EAST 11-27 02:09 → TELE-EAST 11-27 16:58
PROVIDERS: ADMIT Student in an Organized Health Care Education/Training Program; ATTEND Student in an Organized Health Care Education/Training Program
PROC: 0FT44ZZ Resection of Gallbladder, Percutaneous Endoscopic Approach (ICD-10-PCS; principal; 2024-11-27 13:03)
DX: A41.9 Sepsis, unspecified organism (principal); J96.01 Acute respiratory failure with hypoxia; N17.0 Acute kidney failure with tubular necrosis; J81.1 Chronic pulmonary edema; J90 Pleural effusion, not elsewhere classified; E87.29 Other acidosis; K80.00 Calculus of gallbladder with acute cholecystitis without obstruction; E86.0 Dehydration; I95.9 Hypotension, unspecified; Z90.49 Acquired absence of other specified parts of digestive tract
CPT/HCPCS: 36415; 71045; 74177; 76705; 80048; 80053; 80076; 81001; 83605; 83690; 85025; 85610; 85730; 86850; 86900; 86901; 87040; 94640; 96360; G0378; J0131; J1100; J1885; J2003; J2250; J2405; J2470; J2543; J2704; J3490